=== PATIENT | female | born 1980 | race Caucasian/White ===

== ENCOUNTER 2016-11-17 11:07 | Emergency (ER) | payer OTHER ==
[2016-11-17] MEDS ORDERED: Sodium Chloride 0.9% 1000 ML 1,000 ML IV STA (11:55)
[2016-11-17] MEDS ORDERED: TORAdol 30 mg Injection IV ONE (11:57)
--- NOTE | 2016-11-17 12:01 | ERPHSYRPT ---
- History of Present Illness Time Seen by Provider: 11/17/16 11:51 Historian: patient Exam Limitations: no limitations Patient Subjective Stated Complaint: left flank and left abd pain and blood in urine since sunday. seen at [facility] today and sent over to ed for possible kidney. Triage Nursing Assessment: ambulated to room per self. skin w/d, color normal, resp easy. abd soft, tender to touch Physician History: This is a 36-year-old white female with history of kidney stones car arrives with complaint of pain in the suprapubic and left flank symptoms going on for one week she states she had blood in her urine one week ago she's been having continuing pain in the left flank she states she's been leaking urine. She has had some nausea no vomiting no diarrhea no melena no hematochezia. Past medical history kidney stones. Past surgical history includes cholecystectomy hysterectomy uterine ablation Timing/Duration: week(s) (one week) Activities at Onset: none Quality: sharpness Abdominal Pain Onset Location: suprapubic, flank (left flank) Pain Radiation: flank (left flank) Severity of Pain-Max: moderate Severity of Pain-Current: moderate Modifying Factors: Improves With: nothing Associated Symptoms: back (left flank pain), nausea, other (bloody urine), No chest pain, No diaphoresis, No diarrhea, No fever/chills, No fatigue, No headache, No heartburn, No loss of appetite, No neck pain, No rash, No shortness of breath, No syncope, No vomiting, No weakness Previous symptoms: same symptoms as today Allergies/Adverse Reactions: No Known Drug Allergies Allergy (Verified 11/17/16 11:25) Hx Tetanus, Diphtheria Vaccination/Date Given: No Hx Influenza Vaccination/Date Given: No Hx Pneumococcal Vaccination/Date Given: No - Review of Systems Constitutional: No Fever, No Chills Eyes: No Symptoms, No Discharge, No Eye Pain, No Eye Redness, No Itchy, No Photophobia, No Tearing, No Vision Changes, No Double Vision, No Foreign Body Sensation Ears, Nose, & Throat: No Symptoms, No Ear Pain, No Ear Discharge, No Hearing Changes, No Tinnitus, No Nose Pain, No Nose Congestion, No Nose Discharge, No Sinus Drainage, No Epistaxis, No Mouth Pain, No Mouth Swelling, No Loose Teeth, No Throat Pain, No Throat Swelling, No Hoarse, No Painful Swallowing, No Snoring , No Stridor Respiratory: No Cough, No Dyspnea Cardiac: No Chest Pain, No Edema, No Syncope Abdominal/Gastrointestinal: Abdominal Pain (suprapubic abdominal pain), No Nausea, No Vomiting, No Diarrhea, No Constipation, No Hematemesis, No Hematochezia, No Melena, No Dysphagia, No Appetite Changes Genitourinary Symptoms: Dysuria, Hematuria, Flank Pain (left flank pain), No Frequency, No Hesitancy, No Urgency, No Urinary Retention, No Menorrhagia, No , No Vaginal Bleeding, No Vaginal Discharge, No Vaginal Itching Musculoskeletal: No Back Pain, No Neck Pain Skin: No Rash Neurological: No Dizziness, No Focal Weakness, No Sensory Changes Psychological: No Symptoms Endocrine: No Symptoms All Other Systems: Reviewed and Negative - Past Medical History Pertinent Past Medical History: Yes Neurological History: No Pertinent History ENT History: No Pertinent History Cardiac History: No Pertinent History Respiratory History: No Pertinent History Endocrine Medical History: No Pertinent History Musculoskeletal History: No Pertinent History GI Medical History: No Pertinent History Psycho-Social History: No Pertinent History Female Reproductive Disorders: No Pertinent History, Menstrual Problems Other Medical History: KIDNEY STONES - Past Surgical History Past Surgical History: Yes Neuro Surgical History: No Pertinent History Cardiac: No Pertinent History Respiratory: No Pertinent History Gastrointestinal: Cholecystectomy Genitourinary: No Pertinent History Musculoskeletal: No Pertinent History Female Surgical History: No Pertinent History, Hysterectomy, Other Other Surgical History: UTERINE ABLASION - Social History Smoking Status: Never smoker Exposure to second hand smoke: No Drug Use: none Patient Lives Alone: No - Female History Hx Now: No - Nursing Vital Signs Nursing Vital Signs: Initial Vital Signs Temperature 99.4 F Temperature Source Oral Pulse Rate 92 Respiratory Rate 14 Blood Pressure [] 146/86 Pain Intensity 6 - Physical Exam General Appearance: mild distress Eye Exam: PERRL/EOMI, eyes nml inspection Ears, Nose, Throat Exam: normal ENT inspection, pharynx normal, moist mucous membranes Neck Exam: normal inspection, non-tender, supple, full range of motion Respiratory Exam: normal breath sounds, lungs clear, No respiratory distress Cardiovascular Exam: regular rate/rhythm, normal heart sounds Gastrointestinal/Abdomen Exam: soft, normal bowel sounds, tenderness ( suprapubic left-sided abdominal tenderness), No distention, No mass, No guarding , No ecchymosis, No pulsatile mass, No rebound, No hernia, No hepatomegaly, No organomegaly, No splenomegaly Back Exam: normal inspection, normal range of motion, No CVA tenderness, No vertebral tenderness Extremity Exam: normal inspection, normal range of motion, pelvis stable Neurologic Exam: alert, oriented x 3, cooperative, normal mood/affect, nml cerebellar function, sensation nml, No motor deficits Skin Exam: normal color, warm, dry SpO2 Interpretation: normal SpO2: 96 Oxygen Delivery: Room Air - Course Nursing assessment & vital signs reviewed: Yes - CT Exams Abdomen/Pelvis CT Interpretation: Discussed w/radiologist (CT abdomen and pelvis without contrast impression: 1. No renal calculus new minimal hydronephrosis in the left gu .system,query recent passage of calculus. 2. Again, nonobstructing right renal micro-calculus. 3. Remaining CT abdomen and pelvis without noncontrast exam is negative .) Ordered Tests: Active Orders 24 hr Category Date Time Status IV Insertion STAT Care 11/17/16 11:55 Active ABDOMEN AND PELVIS W/0 CONTRAS [CT] Stat Exams 11/17/16 11:55 Completed AMYLASE Stat Lab 11/17/16 11:30 Completed CBC W DIFF Stat Lab 11/17/16 11:30 Completed CMP Stat Lab 11/17/16 11:30 Completed CULTURE,URINE Stat Lab 11/17/16 12:44 Ordered LIPASE Stat Lab 11/17/16 11:30 Completed UA W/ MICROSCOPIC Stat Lab 11/17/16 11:55 Completed Medication Summary Generic Name Dose Route Start Last Admin Trade Name Freq PRN Reason Stop Dose Admin Sodium Chloride 1,000 mls @ 999 mls/hr 11/17/16 11:55 11/17/16 12:12 Sodium Chloride 0.9% 1000 Ml IV 11/17/16 12:55 999 mls/hr .[id number] STA Administration Discontinued Medications Generic Name Dose Route Start Last Admin Trade Name Freq PRN Reason Stop Dose Admin Sodium Chloride Confirm 11/17/16 12:04 Sodium Chloride 0.9% 1000 Ml Administered 11/17/16 12:05 Dose 1,000 mls @ ud .ROUTE .STK-MED ONE Ketorolac Tromethamine 30 mg 11/17/16 11:57 11/17/16 12:12 Toradol 30 Mg Injection IV 11/17/16 11:58 30 mg STAT ONE Administration Ketorolac Tromethamine Confirm 11/17/16 12:04 Toradol 30 Mg Injection Administered 11/17/16 12:05 Dose 30 mg .ROUTE .STK-MED ONE Lab/Rad Data: Laboratory Result Diagrams 11/17/16 11:30 11/17/16 11:30 Laboratory Results 11/17/16 11/17/16 11/17/16 Range/Units 11:55 11:30 11:30 WBC 11.7 H (4.0-10.5) K/mm3 RBC 4.51 (4.1-5.4) M/mm3 Hgb 13.5 (12.0-16.0) gm/dl Hct 40.4 (35-47) % MCV 89.6 (78-100) fl MCH 29.9 (26-32) pg MCHC 33.4 (32-36) g/dl RDW 12.5 (11.5-14.0) % Plt Count 437 (150-450) K/mm3 MPV 9.7 H (6-9.5) fl Gran % 69.9 H (36.0-66.0) % Lymphocytes % 20.2 L (24.0-44.0) % Monocytes % 9.3 (0.0-12.0) % Eosinophils % 0.2 (0.00-5.0) % Basophils % 0.4 (0.0-0.4) % Basophils # 0.05 (0-0.4) Sodium 139 (136-145) mEq/L Potassium 3.5 (3.5-5.1) mEq/L Chloride 102 (98-107) mEq/L Carbon Dioxide 24.8 (21-32) mEq/L Anion Gap 16.1 H (5-15) MEQ/L BUN 10 (9-20) mg/dL Creatinine 0.78 (0.55-1.30) mg/dl Estimated GFR > 60 ML/MIN Glucose 104 (70-110) MG/DL Calcium 9.5 (8.5-10.1) mg/dL Total Bilirubin 0.9 (0.2-1.0) mg/dL AST 32 (15-37) U/L ALT 40 (12-78) U/L Alkaline Phosphatase 127 H (46-116) U/L Serum Total Protein 8.2 (6.4-8.2) gm/dL Albumin 3.8 (3.4-5.0) g/dL Amylase 49 (25-115) U/L Lipase 87 (73-393) U/L Ur Collection Type VOID Urine Color YELLOW (YELLOW) Urine Appearance CLEAR (CLEAR) Urine pH 6.5 (5-6) Ur Specific [place] 1.010 (1.005-1.025) Urine Protein TRACE (Negative) Urine Glucose (UA) NEGATIVE (NEGATIVE) mg/dL Urine Ketones NEGATIVE (NEGATIVE) Urine Nitrite NEGATIVE (NEGATIVE) Urine Bilirubin NEGATIVE (NEGATIVE) Urine Urobilinogen 0.2 (0-1) mg/dL Urine WBC (Auto) MODERATE (NEGATIVE) Urine RBC (Auto) MODERATE (0-5) Gavino/ul Urine Microscopic RBC 0-2 (0-2) /HPF Urine Microscopic WBC 50-100 (0-5) /HPF Ur Epithelial Cells FEW (FEW) /HPF Urine Bacteria MODERATE (NEGATIVE) /HPF Specimen Received 11/17/16 1215 - Progress Progress: improved Progress Note: 11/17/16 12:52 36-year-old white female arrives with complaint of pain in her left the abdomen suprapubic area and left flank symptoms since one week Describes this as sharp. She states it feels like a kidney stone she states she did have some blood in her urine. Patient's labs show 50-100 white cells per high-power field CBC is essentially normal so his chemistry Patient's CT of the abdomen shows no renal calculus in the left system,. Minimal hydronephrosis with ureteral prominence, query recent passage of calculus there is a nonobstructing right renal micro-calculus. Remaining CT abdomen and pelvis without contrast was negative. Will go ahead and give patient Rocephin 1 g IV plan home Bactrim DS one orally twice a day for 10 days plenty of fluids. Patient states she has [place] at home. Patient will need to follow-up with her family doctor - Departure Time of Disposition: 12:54 Departure Disposition: Home Clinical Impression: Acute abdominal pain in left flank UTI (urinary tract infection) Qualifiers: Urinary tract infection type: site unspecified Hematuria presence: without hematuria Qualified Code(s): N39.0 - Urinary tract infection, site not specified Condition: Fair Critical Care Time: No Instructions: Abdominal Pain-Adult Additional Instructions: Return home. Plenty of fluids clear fluids only 24-48 hours if abdominal pain. [place] as prescribed by your family doctor. Bactrim DS one orally twice a day for 10 days. Follow-up with your family doctor. Return for acute distress or for severe symptoms. Strain all urine Prescriptions: Smz/Tmp Ds Tablet [Bactrim Ds Tablet] 1 tab PO BID #20 tablet
[2016-11-17] MEDS ORDERED: TORAdol 30 mg Injection ONE (12:04)
[2016-11-17] MEDS ORDERED: Sodium Chloride 0.9% 1000 ML 1,000 ML ONE (12:04)
[2016-11-17 12:09] LABS: BASOPHIL % 0.4 % (0.0-0.4); Eosinophil % 0.2 % (0.00-5.0); Granulocytes % 69.9 % (36.0-66.0); Lymphocytes % 20.2 % (24.0-44.0); Mean Cell Volume 89.6 fl (78-100); Mean Corpuscular Hemoglobin 29.9 pg (26-32); Mean Platelet Volume 9.7 fl (6-9.5); Monocytes % 9.3 % (0.0-12.0); Platelet Count 437 K/mm3 (150-450); Red Blood Count 4.51 M/mm3 (4.1-5.4); Red Cell Distribution Width 12.5 % (11.5-14.0); White Blood Count 11.7 K/mm3 (4.0-10.5)
--- NOTE | 2016-11-17 12:26 | XRAY ---
Indication: Left flank pain. Blood in urine. Multiple contiguous axial images obtained through the abdomen and pelvis without contrast as ordered. Comparison: January 09, 2016. Lung bases are clear. Heart is not enlarged. Again nonobstructing right lower renal micro-calculus. Left kidney negative for calculus. However there is now minimal left hydronephrosis and mild left ureteral prominence which can be seen from recent passage of calculus. No perinephric fluid or stranding. Noncontrasted stomach and bowel loops appear nonobstructed. Normal-appearing appendix. Again previous cholecystectomy and hysterectomy. No free fluid/air. Remaining liver, pancreas, spleen, adrenal glands, bladder, and aorta appear unremarkable for noncontrast exam. Osseous structures intact. Impression: 1. No renal calculus in the left system. New minimal hydronephrosis with ureteral prominence. Query recent passage of calculus. 2. Again nonobstructing right renal micro-calculus. 3. Remaining CT abdomen/pelvis without noncontrast exam is negative. CTDI 15.53
[2016-11-17 12:32] LABS: COMPLETE URINE MICROSCOPIC? YES; Collection Type VOID; Ph 6.5 (5-6)
[2016-11-17 12:33] LABS: Bacteria MODERATE /HPF (NEGATIVE); Epithelial Cells FEW /HPF (FEW); WBC 50-100 /HPF (0-5)
[2016-11-17 12:34] LABS: ALBUMIN 3.8 g/dL (3.4-5.0); ALKALINE PHOSPHATASE 127 U/L (46-116); ANION GAP 16.1 MEQ/L (5-15); BILIRUBIN,TOTAL 0.9 mg/dL (0.2-1.0); BLOOD UREA NITROGEN 10 mg/dL (9-20); CHLORIDE 102 mEq/L (98-107); Carbon Dioxide 24.8 mEq/L (21-32); Glucose 104 MG/DL (70-110); LIPASE 87 U/L (73-393); Potassium 3.5 mEq/L (3.5-5.1); SGOT/AST 32 U/L (15-37); SGPT/ALT 40 U/L (12-78); SODIUM 139 mEq/L (136-145); Total Protein 8.2 gm/dL (6.4-8.2)
[2016-11-17 12:48] VITALS: O2SAT 96
[2016-11-17] MEDS ORDERED: ROCEPHIN 1 Gm-D5w 50 ml Bag** 1 G/50 ML IVPB IV ONE ×2 (13:04→13:10)
[2016-11-17 13:56] VITALS: BP 134/92; PULSE 90
== END 2016-11-17 13:55 ==
LOC: ED 11:07
DX: N39.0 Urinary tract infection, site not specified (principal); R10.9 Unspecified abdominal pain; R31.9 Hematuria, unspecified; R11.0 Nausea
CPT/HCPCS: 36000; 36415; 74176; 80053; 81000; 82150; 83690; 85025; 87077; 87086; 87186; 96360; 96365; 96374; 99284; J0696; J1885

== ENCOUNTER 2019-01-29 17:25 | Emergency (ER) | payer BC | END 2019-01-29 21:55 | disposition home or self-care (01) | LOC: ED 17:25 ==

== ENCOUNTER 2020-03-09 18:06 | Emergency (ER) | payer BC ==
[2020-03-09] MEDS ORDERED: MORPHINE SULFATE 4 MG INJ IV ONE (18:44)
[2020-03-09 19:04] LABS: Absolute Neutrophil Ct (ANC) 12.06 (1.4-6.9); BASOPHIL % 0.3 % (0.0-0.4); Basophil (Absolute #) 0.05 (0-0.4); Eosinophil % 0.1 % (0.00-5.0); Eosinophil (Absolute #) 0.01 (0-0.5); Hematocrit 43.2 % (35-47); Hemoglobin 14.1 gm/dl (12.0-16.0); Lymphocyte (Absolute #) 1.66 (1.0-4.6); Lymphocytes % 11.3 % (24.0-44.0); Mean Cell Volume 91.5 fl (78-100); Mean Corpuscular Hemoglobin 29.9 pg (26-32); Mean Corpuscular Hgb Concent. 32.6 g/dl (32-36); Mean Platelet Volume 9.7 fl (7.5-11.0); Monocyte (Absolute #) 0.88 (0.0-1.3); Neutrophil % 82.3 % (36.0-66.0); Platelet Count 335 K/mm3 (150-450); Red Blood Count 4.72 M/mm3 (4.1-5.4); Red Cell Distribution Width 12.8 % (11.5-14.0); White Blood Count 14.7 K/mm3 (4.0-10.5)
[2020-03-09 19:12] LABS: ALBUMIN 4.6 g/dL (3.5-5.0); ALKALINE PHOSPHATASE 123 U/L (38-126); ANION GAP 15.2 MEQ/L (5-15); BLOOD UREA NITROGEN 14 mg/dL (7-17); CHLORIDE 102 mmol/L (98-107); Calcium 9.4 mg/dL (8.4-10.2); Carbon Dioxide 25 mmol/L (22-30); Creatinine 1 0.74 mg/dL (0.52-1.04); EST GLOMERULAR FILTRATION RATE > 60.0 ML/MIN; Glucose 144 mg/dL (74-106); SGOT/AST 27 U/L (14-36); SGPT/ALT 21 U/L (0-35); SODIUM 138 mmol/L (137-145); Total Protein 8.4 g/dL (6.3-8.2)
[2020-03-09 19:13] LABS: ETHYL ALCOHOL < 10 mg/dL (0-10)
[2020-03-09] MEDS ORDERED: MORPHINE SULFATE 4 MG INJ ONE (19:13)
[2020-03-09 19:26] LABS: Appearance CLEAR (CLEAR); Bilirubin NEGATIVE (NEGATIVE); Blood SMALL Ery/ul (0-5); Epithelial Cells RARE /HPF (FEW); Glucose NEGATIVE (NEGATIVE); Ketones SMALL (NEGATIVE); Leukocyte Esterase NEGATIVE (NEGATIVE); Mucus SLIGHT /HPF (NEGATIVE); Nitrite NEGATIVE (NEGATIVE); Protein,Urine Dip NEGATIVE (Negative); Specific Gravity 1.015 (1.005-1.025); Urobilinogen NEGATIVE mg/dL (0-1); WBC 0-2 /HPF (0-5)
[2020-03-09 19:32] LABS: Bacteria NONE SEEN /HPF (NEGATIVE)
[2020-03-09 19:40] LABS: Amphetamine,Urine NEGATIVE (NEGATIVE); Barbiturate,Urine NEGATIVE (NEGATIVE); Benzodiazepine,Urine NEGATIVE (NEGATIVE); Cocaine,Urine NEGATIVE (NEGATIVE); Methadone,Urine NEGATIVE (NEGATIVE); Opiate,Urine NEGATIVE (NEGATIVE); PCP,Urine NEGATIVE (NEGATIVE); THC,Urine NEGATIVE (NEGATIVE)
--- NOTE | 2020-03-09 20:48 | ERPHSYRPT ---
- History of Present Illness Time Seen by Provider: 03/09/20 18:20 Exam Limitations: no limitations Patient Subjective Stated Complaint: pt here for multi cos , pain to both arms , chesttoday with nausea, weakness, light headed,abd pain, migraine last night , she also states she has a migraine last ngt Triage Nursing Assessment: pt alert, walked in, resp easy. face mask applied,skin w/d/p, no edema Physician History: Patient is a 39-year-old female presents to our ED with complaints of chest pain heart palpitations bilateral arm pain nausea generalized weakness lightheadedness and a migraine headache. Symptoms started today. Symptoms have been constant. Patient describes a cloud over her eyes. No trauma. No fever. No diarrhea. No sick contacts. 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 Pain is mild to moderate in intensity. No specific worsening or improving factors. Patient states she is otherwise healthy. She voices no other complaints at this time. Timing/Duration: today Severity: moderate Modifying Factors: Improves With: nothing Associated Symptoms: nausea, headaches, No vomiting, No abdominal pain, No loss of appetite Allergies/Adverse Reactions: No Known Drug Allergies Allergy (Verified 03/09/20 18:23) Home Medications: Ospemifene [Osphena] 60 mg DAILY 01/29/19 [History] Testosterone Enanthate [Xyosted] 1 ea CLARIFY 03/09/20 [History] Hx Tetanus, Diphtheria Vaccination/Date Given: No Hx Influenza Vaccination/Date Given: No Hx Pneumococcal Vaccination/Date Given: No Immunizations Up to Date: Yes Travel Risk - International Travel Have you traveled outside of the country in past 3 weeks: No - Coronavirus Screening Are you exhibiting any of the following symptoms?: Yes Symptoms: Vomiting/Diarrhea Close contact with a COVID-19 positive Pt in past 14-21 Days: No - Review of Systems Constitutional: No Symptoms, No Fever, No Chills Eyes: No Symptoms Ears, Nose, & Throat: No Symptoms Respiratory: No Symptoms, No Cough, No Dyspnea Cardiac: No Symptoms, No Chest Pain, No Edema, No Syncope Abdominal/Gastrointestinal: No Symptoms, No Abdominal Pain, No Nausea, No Vomiting, No Diarrhea Genitourinary Symptoms: No Symptoms, No Dysuria Musculoskeletal: No Symptoms, No Back Pain, No Neck Pain Skin: No Symptoms, No Rash Neurological: No Symptoms, No Dizziness, No Focal Weakness, No Sensory Changes Psychological: No Symptoms Endocrine: No Symptoms Hematologic/Lymphatic: No Symptoms Immunological/Allergic: No Symptoms All Other Systems: Reviewed and Negative - Past Medical History Pertinent Past Medical History: Yes Neurological History: No Pertinent History ENT History: No Pertinent History Cardiac History: No Pertinent History Respiratory History: No Pertinent History Endocrine Medical History: No Pertinent History Musculoskeletal History: No Pertinent History GI Medical History: No Pertinent History Psycho-Social History: No Pertinent History Female Reproductive Disorders: No Pertinent History, Menstrual Problems Other Medical History: KIDNEY STONES - Past Surgical History Past Surgical History: Yes Neuro Surgical History: No Pertinent History Cardiac: No Pertinent History Respiratory: No Pertinent History Gastrointestinal: Cholecystectomy Genitourinary: No Pertinent History Musculoskeletal: No Pertinent History Female Surgical History: Hysterectomy, Other Other Surgical History: UTERINE ABLASION - Social History Smoking Status: Never smoker Exposure to second hand smoke: No Drug Use: none Patient Lives Alone: No - Female History Hx Last Menstrual Period: post Hx Now: No - Nursing Vital Signs Nursing Vital Signs: Initial Vital Signs Temperature 98.8 F 03/09/20 18:17 Pulse Rate 120 H 03/09/20 18:17 Respiratory Rate 18 03/09/20 18:17 Blood Pressure 181/100 03/09/20 18:17 O2 Sat by Pulse Oximetry 97 03/09/20 18:17 Pain Scale Pain Intensity 5 - Physical Exam General Appearance: no apparent distress, alert Eye Exam: PERRL/EOMI, eyes nml inspection Ears, Nose, Throat Exam: normal ENT inspection, TMs normal, pharynx normal, moist mucous membranes Neck Exam: normal inspection, non-tender, supple, full range of motion Respiratory Exam: normal breath sounds, lungs clear, No respiratory distress Cardiovascular Exam: regular rate/rhythm, normal heart sounds, normal peripheral pulses Gastrointestinal/Abdomen Exam: soft, normal bowel sounds, No tenderness, No mass Back Exam: normal inspection, normal range of motion, No CVA tenderness, No vertebral tenderness Extremity Exam: normal inspection, normal range of motion, pelvis stable Neurologic Exam: alert, oriented x 3, cooperative, normal mood/affect, nml cerebellar function, nml station & gait, sensation nml, No motor deficits Skin Exam: normal color, warm, dry, No rash Lymphatic Exam: No adenopathy SpO2: 97 O2 Delivery: Room Air - Course Nursing assessment & vital signs reviewed: Yes EKG Interpreted by Me: RATE ([id number]), Sinus Tach, NORMAL AXIS, NORMAL INTERVALS - Radiology Exams Chest X-ray Interpretation: Teleradiologist Report (Negative chest x-ray. Normal bony thorax. Normal cardiac silhouette. No pneumonia.) - CT Exams Head CT Interpretation: Tele-radiologist Report (Negative CT head.) Chest CT Interpretation: Tele-radiologist Report (Of ALFREDA. Incidental 5 mm left upper lobe noncalcified nodule. Fatty liver.) Ordered Tests: Active Orders 24 hr Category Date Time Status Bedrest with BRP/BSC ROUTINE Activity 03/10/20 00:50 Completed Up With Assistance ROUTINE Activity 03/10/20 00:50 Completed Budget Consultant STAT Care 03/09/20 18:46 Completed Code Status Order ROUTINE Care 03/10/20 00:50 Completed EKG-ER Only STAT Care 03/09/20 18:44 Completed IV Care Q6H Care 03/10/20 00:50 Completed IV Insertion STAT Care 03/09/20 18:44 Completed Implement Chest Pain Pathway ROUTINE Care 03/10/20 00:[address] in Observation ROUTINE Care 03/10/20 00:50 Completed Pulse Oximetry (ED) STAT Care 03/09/20 18:44 Completed Nate Hose, Apply ROUTINE Care 03/10/20 00:50 Completed Telemetry q6h Care 03/10/20 00:50 Completed Weight,Daily 0600 Care 03/10/20 00:50 Completed CHEST 1 VIEW (PORTABLE) Stat Exams 03/09/20 18:46 Taken CHEST WITH CONTRAST [CT] Stat Exams 03/09/20 21:38 Taken HEAD WITHOUT CONTRAST [CT] Stat Exams 03/09/20 21:23 Taken CBC W DIFF Stat Lab 03/09/20 18:45 Completed CMP Stat Lab 03/09/20 18:45 Completed D-DIMER QUANTITATIVE Stat Lab 03/09/20 18:45 Completed ETHYL ALCOHOL Stat Lab 03/09/20 18:45 Completed LIPID PROFILE AM.LAB Lab 03/10/20 04:00 Ordered MAGNESIUM Stat Lab 03/09/20 18:45 Completed TROPONIN AM.LAB Lab 03/10/20 04:00 Ordered TROPONIN Q3H Lab 03/09/20 18:45 Completed TROPONIN Q3H Lab 03/09/20 22:15 Completed TROPONIN Q3H Lab 03/10/20 00:40 Completed TROPONIN Q3H Lab 03/10/20 03:45 Ordered TROPONIN Q3H Lab 03/10/20 06:45 Ordered TSH, 3RD Generation Routine Lab 03/09/20 18:45 Completed VBG [VENOUS BLOOD GAS] Stat Lab 03/09/20 22:15 Completed EKG Q8HX2,QAMX3,PRN RT 03/10/20 00:50 Completed Pulse Oximetry Q4H RT 03/10/20 00:50 Completed Transfer Order Routine Transfer 03/10/20 Completed Medication Summary Discontinued Medications Generic Name Dose Route Start Last Admin Trade Name Freq PRN Reason Stop Dose Admin Acetaminophen 650 mg 03/10/20 00:50 Tylenol 325 Mg PO 04/09/20 00:49 Q4H PRN PRN PAIN AND/OR FEVER Al Hydrox/Mg Hydrox/Simethicone 30 ml 03/10/20 00:50 Maalox Es 30 Ml Unit Dose PO 04/09/20 00:49 Q4H PRN PRN INDIGESTION Sodium Chloride 1,000 mls @ 999 mls/hr 03/09/20 20:49 03/09/20 22:50 Sodium Chloride 0.9% 1000 Ml IV 03/09/20 21:49 Infused .Q1H1M STA Infusion Sodium Chloride Confirm 03/09/20 21:10 Sodium Chloride 0.9% 1000 Ml Administered 03/09/20 21:11 Dose 1,000 mls @ ud .ROUTE .STK-MED ONE Sodium Chloride 1,000 mls @ 999 mls/hr 03/10/20 00:14 03/10/20 00:41 Sodium Chloride 0.9% 1000 Ml IV 03/10/20 01:14 999 mls/hr .Q1H1M STA Administration Sodium Chloride Confirm 03/10/20 00:40 Sodium Chloride 0.9% 1000 Ml Administered 03/10/20 00:41 Dose 1,000 mls @ ud .ROUTE .STK-MED ONE Magnesium Hydroxide 30 - 60 ml 03/10/20 00:50 Milk Of Magnesia 30 Ml PO 04/09/20 00:49 QDP PRN CONSTIPATION Morphine Sulfate 4 mg 03/09/20 18:44 03/09/20 19:13 Morphine Sulfate 4 Mg Inj IV 03/09/20 18:45 4 mg STAT ONE Administration Morphine Sulfate Confirm 03/09/20 19:13 Morphine Sulfate 4 Mg Inj Administered 03/09/20 19:14 Dose 4 mg .ROUTE .STK-MED ONE Ondansetron HCl 4 mg 03/10/20 00:50 Zofran 4 Mg/2 Ml Vial IV 04/09/20 00:49 Q4H PRN PRN NAUSEA/VOMITING Senna/Docusate Sodium 2 udtab 03/10/20 00:50 Senokot-S Tablet PO 04/09/20 00:49 BID PRN PRN CONSTIPATION Lab/Rad Data: Laboratory Result Diagrams 03/09/20 18:45 03/09/20 18:45 Laboratory Results 03/09/20 03/09/20 03/09/20 Range/Units Unknown Unknown Unknown WBC (4.0-10.5) K/mm3 RBC (4.1-5.4) M/mm3 Hgb (12.0-16.0) gm/dl Hct (35-47) % MCV (78-100) fl MCH (26-32) pg MCHC (32-36) g/dl RDW (11.5-14.0) % Plt Count (150-450) K/mm3 MPV (7.5-11.0) fl Gran % (36.0-66.0) % Eos # (Auto) (0-0.5) Absolute Lymphs (auto) (1.0-4.6) Absolute Monos (auto) (0.0-1.3) Lymphocytes % (24.0-44.0) % Monocytes % (0.0-12.0) % Eosinophils % (0.00-5.0) % Basophils % (0.0-0.4) % Absolute Granulocytes (1.4-6.9) Basophils # (0-0.4) D-Dimer (215-500) ng/mL pO2/FiO2 Ratio % VBG pH (7.32-7.42) VBG pCO2 at Pat Temp (42-55) mm/Hg VBG pO2 at Pat Temp (25-40) mm/Hg VBG HCO3 (22-28) meq/L VBG O2 Sat (Jasiel) (95-100) VBG Base Excess (-2.0-2.0) VBG Hemoglobin VBG Carboxyhemoglobin (0.0-6.9) % T HGB POC Potassium (3.5-5.1) Sodium (137-145) mmol/L Potassium (3.5-5.1) mmol/L Chloride (98-107) mmol/L Carbon Dioxide (22-30) mmol/L Anion Gap (5-15) MEQ/L BUN (7-17) mg/dL Creatinine (0.52-1.04) mg/dL Estimated GFR ML/MIN Glucose (74-106) mg/dL Calcium (8.4-10.2) mg/dL Magnesium (1.6-2.3) mg/dL Total Bilirubin (0.2-1.3) mg/dL AST (14-36) U/L ALT (0-35) U/L Alkaline Phosphatase (38-126) U/L Troponin I (0.000-0.034) ng/mL Serum Total Protein (6.3-8.2) g/dL Albumin (3.5-5.0) g/dL TSH 3rd Generation (0.47-4.68) mIU/L Urine Color (YELLOW) Urine Appearance (CLEAR) Urine pH (5-6) Ur Specific [place] (1.005-1.025) Urine Protein (Negative) Urine Ketones (NEGATIVE) Urine Blood (0-5) Gavino/ul Urine Nitrite (NEGATIVE) Urine Bilirubin (NEGATIVE) Urine Urobilinogen (0-1) mg/dL Ur Leukocyte Esterase (NEGATIVE) Urine WBC (Auto) (0-5) /HPF Urine RBC (Auto) (0-2) /HPF U Epithel Cells (Auto) (FEW) /HPF Urine Bacteria (Auto) (NEGATIVE) /HPF Urine Mucus (Auto) (NEGATIVE) /HPF Urine Culture Reflexed (NO) Urine Glucose (NEGATIVE) mg/dL Urine HCG, Qual NEGATIVE (Negative) Salicylates 1.1 L (2-20) mg/dL Urine Opiates Level NEGATIVE (NEGATIVE) Ur Methadone NEGATIVE (NEGATIVE) Acetaminophen < 10 L (10-30) ug/ml Urine Barbiturates NEGATIVE (NEGATIVE) Ur Phencyclidine (PCP) NEGATIVE (NEGATIVE) Urine Amphetamine NEGATIVE (NEGATIVE) U Benzodiazepine Level NEGATIVE (NEGATIVE) Urine Cocaine NEGATIVE (NEGATIVE) Urine Marijuana (THC) NEGATIVE (NEGATIVE) Ethyl Alcohol (0-10) mg/dL SARS-CoV-2 (PCR) (NEGATIVE) 03/09/20 03/09/20 03/09/20 Range/Units Unknown 22:40 22:15 WBC (4.0-10.5) K/mm3 RBC (4.1-5.4) M/mm3 Hgb (12.0-16.0) gm/dl Hct (35-47) % MCV (78-100) fl MCH (26-32) pg MCHC (32-36) g/dl RDW (11.5-14.0) % Plt Count (150-450) K/mm3 MPV (7.5-11.0) fl Gran % (36.0-66.0) % Eos # (Auto) (0-0.5) Absolute Lymphs (auto) (1.0-4.6) Absolute Monos (auto) (0.0-1.3) Lymphocytes % (24.0-44.0) % Monocytes % (0.0-12.0) % Eosinophils % (0.00-5.0) % Basophils % (0.0-0.4) % Absolute Granulocytes (1.4-6.9) Basophils # (0-0.4) D-Dimer (215-500) ng/mL pO2/FiO2 Ratio 21.0 % VBG pH 7.47 H (7.32-7.42) VBG pCO2 at Pat Temp 34 L (42-55) mm/Hg VBG pO2 at Pat Temp 51 H (25-40) mm/Hg VBG HCO3 24.7 (22-28) meq/L VBG O2 Sat (Jasiel) 87.3 L (95-100) VBG Base Excess 1.5 (-2.0-2.0) VBG Hemoglobin 13.8 VBG Carboxyhemoglobin 2.8 (0.0-6.9) % T HGB POC Potassium 4.0 (3.5-5.1) Sodium (137-145) mmol/L Potassium (3.5-5.1) mmol/L Chloride (98-107) mmol/L Carbon Dioxide (22-30) mmol/L Anion Gap (5-15) MEQ/L BUN (7-17) mg/dL Creatinine (0.52-1.04) mg/dL Estimated GFR ML/MIN Glucose (74-106) mg/dL Calcium (8.4-10.2) mg/dL Magnesium (1.6-2.3) mg/dL Total Bilirubin (0.2-1.3) mg/dL AST (14-36) U/L ALT (0-35) U/L Alkaline Phosphatase (38-126) U/L Troponin I (0.000-0.034) ng/mL Serum Total Protein (6.3-8.2) g/dL Albumin (3.5-5.0) g/dL TSH 3rd Generation (0.47-4.68) mIU/L Urine Color YELLOW (YELLOW) Urine Appearance CLEAR (CLEAR) Urine pH 5.0 (5-6) Ur Specific [place] 1.015 (1.005-1.025) Urine Protein NEGATIVE (Negative) Urine Ketones SMALL (NEGATIVE) Urine Blood SMALL (0-5) Gavino/ul Urine Nitrite NEGATIVE (NEGATIVE) Urine Bilirubin NEGATIVE (NEGATIVE) Urine Urobilinogen NEGATIVE (0-1) mg/dL Ur Leukocyte Esterase NEGATIVE (NEGATIVE) Urine WBC (Auto) 0-2 (0-5) /HPF Urine RBC (Auto) NONE (0-2) /HPF U Epithel Cells (Auto) RARE (FEW) /HPF Urine Bacteria (Auto) NONE SEEN (NEGATIVE) /HPF Urine Mucus (Auto) SLIGHT (NEGATIVE) /HPF Urine Culture Reflexed NO (NO) Urine Glucose NEGATIVE (NEGATIVE) mg/dL Urine HCG, Qual (Negative) Salicylates (2-20) mg/dL Urine Opiates Level (NEGATIVE) Ur Methadone (NEGATIVE) Acetaminophen (10-30) ug/ml Urine Barbiturates (NEGATIVE) Ur Phencyclidine (PCP) (NEGATIVE) Urine Amphetamine (NEGATIVE) U Benzodiazepine Level (NEGATIVE) Urine Cocaine (NEGATIVE) Urine Marijuana (THC) (NEGATIVE) Ethyl Alcohol (0-10) mg/dL SARS-CoV-2 (PCR) NEGATIVE (NEGATIVE) 03/09/20 03/09/20 03/09/20 Range/Units 22:15 18:45 18:45 WBC (4.0-10.5) K/mm3 RBC (4.1-5.4) M/mm3 Hgb (12.0-16.0) gm/dl Hct (35-47) % MCV (78-100) fl MCH (26-32) pg MCHC (32-36) g/dl RDW (11.5-14.0) % Plt Count (150-450) K/mm3 MPV (7.5-11.0) fl Gran % (36.0-66.0) % Eos # (Auto) (0-0.5) Absolute Lymphs (auto) (1.0-4.6) Absolute Monos (auto) (0.0-1.3) Lymphocytes % (24.0-44.0) % Monocytes % (0.0-12.0) % Eosinophils % (0.00-5.0) % Basophils % (0.0-0.4) % Absolute Granulocytes (1.4-6.9) Basophils # (0-0.4) D-Dimer (215-500) ng/mL pO2/FiO2 Ratio % VBG pH (7.32-7.42) VBG pCO2 at Pat Temp (42-55) mm/Hg VBG pO2 at Pat Temp (25-40) mm/Hg VBG HCO3 (22-28) meq/L VBG O2 Sat (Jasiel) (95-100) VBG Base Excess (-2.0-2.0) VBG Hemoglobin VBG Carboxyhemoglobin (0.0-6.9) % T HGB POC Potassium (3.5-5.1) Sodium (137-145) mmol/L Potassium (3.5-5.1) mmol/L Chloride (98-107) mmol/L Carbon Dioxide (22-30) mmol/L Anion Gap (5-15) MEQ/L BUN (7-17) mg/dL Creatinine (0.52-1.04) mg/dL Estimated GFR ML/MIN Glucose (74-106) mg/dL Calcium (8.4-10.2) mg/dL Magnesium (1.6-2.3) mg/dL Total Bilirubin (0.2-1.3) mg/dL AST (14-36) U/L ALT (0-35) U/L Alkaline Phosphatase (38-126) U/L Troponin I < 0.012 < 0.012 (0.000-0.034) ng/mL Serum Total Protein (6.3-8.2) g/dL Albumin (3.5-5.0) g/dL TSH 3rd Generation 1.740 (0.47-4.68) mIU/L Urine Color (YELLOW) Urine Appearance (CLEAR) Urine pH (5-6) Ur Specific [place] (1.005-1.025) Urine Protein (Negative) Urine Ketones (NEGATIVE) Urine Blood (0-5) Gavino/ul Urine Nitrite (NEGATIVE) Urine Bilirubin (NEGATIVE) Urine Urobilinogen (0-1) mg/dL Ur Leukocyte Esterase (NEGATIVE) Urine WBC (Auto) (0-5) /HPF Urine RBC (Auto) (0-2) /HPF U Epithel Cells (Auto) (FEW) /HPF Urine Bacteria (Auto) (NEGATIVE) /HPF Urine Mucus (Auto) (NEGATIVE) /HPF Urine Culture Reflexed (NO) Urine Glucose (NEGATIVE) mg/dL Urine HCG, Qual (Negative) Salicylates (2-20) mg/dL Urine Opiates Level (NEGATIVE) Ur Methadone (NEGATIVE) Acetaminophen (10-30) ug/ml Urine Barbiturates (NEGATIVE) Ur Phencyclidine (PCP) (NEGATIVE) Urine Amphetamine (NEGATIVE) U Benzodiazepine Level (NEGATIVE) Urine Cocaine (NEGATIVE) Urine Marijuana (THC) (NEGATIVE) Ethyl Alcohol (0-10) mg/dL SARS-CoV-2 (PCR) (NEGATIVE) 03/09/20 03/09/20 03/09/20 Range/Units 18:45 18:45 18:45 WBC 14.7 H (4.0-10.5) K/mm3 RBC 4.72 (4.1-5.4) M/mm3 Hgb 14.1 (12.0-16.0) gm/dl Hct 43.2 (35-47) % MCV 91.5 (78-100) fl MCH 29.9 (26-32) pg MCHC 32.6 (32-36) g/dl RDW 12.8 (11.5-14.0) % Plt Count 335 (150-450) K/mm3 MPV 9.7 (7.5-11.0) fl Gran % 82.3 H (36.0-66.0) % Eos # (Auto) 0.01 (0-0.5) Absolute Lymphs (auto) 1.66 (1.0-4.6) Absolute Monos (auto) 0.88 (0.0-1.3) Lymphocytes % 11.3 L (24.0-44.0) % Monocytes % 6.0 (0.0-12.0) % Eosinophils % 0.1 (0.00-5.0) % Basophils % 0.3 (0.0-0.4) % Absolute Granulocytes 12.06 H (1.4-6.9) Basophils # 0.05 (0-0.4) D-Dimer 408 (215-500) ng/mL pO2/FiO2 Ratio % VBG pH (7.32-7.42) VBG pCO2 at Pat Temp (42-55) mm/Hg VBG pO2 at Pat Temp (25-40) mm/Hg VBG HCO3 (22-28) meq/L VBG O2 Sat (Jasiel) (95-100) VBG Base Excess (-2.0-2.0) VBG Hemoglobin VBG Carboxyhemoglobin (0.0-6.9) % T HGB POC Potassium (3.5-5.1) Sodium 138 (137-145) mmol/L Potassium 4.0 (3.5-5.1) mmol/L Chloride 102 (98-107) mmol/L Carbon Dioxide 25 (22-30) mmol/L Anion Gap 15.2 H (5-15) MEQ/L BUN 14 (7-17) mg/dL Creatinine 0.74 (0.52-1.04) mg/dL Estimated GFR > 60.0 ML/MIN Glucose 144 H (74-106) mg/dL Calcium 9.4 (8.4-10.2) mg/dL Magnesium 2.0 (1.6-2.3) mg/dL Total Bilirubin 0.80 (0.2-1.3) mg/dL AST 27 (14-36) U/L ALT 21 (0-35) U/L Alkaline Phosphatase 123 (38-126) U/L Troponin I (0.000-0.034) ng/mL Serum Total Protein 8.4 H (6.3-8.2) g/dL Albumin 4.6 (3.5-5.0) g/dL TSH 3rd Generation (0.47-4.68) mIU/L Urine Color (YELLOW) Urine Appearance (CLEAR) Urine pH (5-6) Ur Specific [place] (1.005-1.025) Urine Protein (Negative) Urine Ketones (NEGATIVE) Urine Blood (0-5) Gavino/ul Urine Nitrite (NEGATIVE) Urine Bilirubin (NEGATIVE) Urine Urobilinogen (0-1) mg/dL Ur Leukocyte Esterase (NEGATIVE) Urine WBC (Auto) (0-5) /HPF Urine RBC (Auto) (0-2) /HPF U Epithel Cells (Auto) (FEW) /HPF Urine Bacteria (Auto) (NEGATIVE) /HPF Urine Mucus (Auto) (NEGATIVE) /HPF Urine Culture Reflexed (NO) Urine Glucose (NEGATIVE) mg/dL Urine HCG, Qual (Negative) Salicylates (2-20) mg/dL Urine Opiates Level (NEGATIVE) Ur Methadone (NEGATIVE) Acetaminophen (10-30) ug/ml Urine Barbiturates (NEGATIVE) Ur Phencyclidine (PCP) (NEGATIVE) Urine Amphetamine (NEGATIVE) U Benzodiazepine Level (NEGATIVE) Urine Cocaine (NEGATIVE) Urine Marijuana (THC) (NEGATIVE) Ethyl Alcohol < 10 (0-10) mg/dL SARS-CoV-2 (PCR) (NEGATIVE) - Progress Progress: improved Progress Note: His heart rate gradually improved while in our ED. Heart rate down to 97 from 140. Patient was admitted as a observation patient however this was discontinued as patient's vitals normalized. Patient requesting discharge. Work-up otherwise negative. Will discharge patient home. Patient to follow-up with her primary care doctor within 48 hours for reevaluation. 03/10/20 01:48 Counseled pt/family regarding: lab results, diagnosis, need for follow-up, rad results - Departure Departure Disposition: Home Clinical Impression: Sinus tachycardia, Lung nodule, Fatty liver, Leukocytosis, Microscopic hematuria Condition: Stable Critical Care Time: No
[2020-03-09] MEDS ORDERED: Sodium Chloride 0.9% 1000 ML 1,000 ML IV STA (20:49)
[2020-03-09 21:01] LABS: SALICYLATE 1.1 mg/dL (2-20)
[2020-03-09 21:02] LABS: ACETAMINOPHEN < 10 ug/ml (10-30)
[2020-03-09] MEDS ORDERED: Sodium Chloride 0.9% 1000 ML 1,000 ML ONE (21:10)
[2020-03-09 22:21] LABS: VBG BASE EXCESS 1.5 (-2.0-2.0); VBG CARBOXYHEMOGLOBIN 2.8 % T HGB (0.0-6.9); VBG HCO3- 24.7 meq/L (22-28); VBG HEMOGLOBIN 13.8; VBG O2 SATURATION 87.3 (95-100); VBG pH 7.47 (7.32-7.42)
[2020-03-10] MEDS ORDERED: Sodium Chloride 0.9% 1000 ML 1,000 ML IV STA (00:14)
[2020-03-10] MEDS ORDERED: Sodium Chloride 0.9% 1000 ML 1,000 ML ONE (00:40)
[2020-03-10] MEDS ORDERED: MAALOX ES 30 ML UNIT DOSE PO PRN ×2 (00:50→09:07)
[2020-03-10] MEDS ORDERED: Senokot-S Tablet PO PRN ×2 (00:50→09:07)
[2020-03-10] MEDS ORDERED: Zofran 4 MG/2 ML VIAL IV PRN ×2 (00:50→09:07)
[2020-03-10] MEDS ORDERED: MILK OF MAGNESIA 30 ML PO PRN ×2 (00:50→09:07)
[2020-03-10] MEDS ORDERED: TYLENOL 325 MG PO PRN ×2 (00:50→09:07)
[2020-03-10 01:53] VITALS: BP 144/91; PULSE 97; O2SAT 98
--- NOTE | 2020-03-10 08:37 | XRAY ---
Indication: Headache and dizziness. Multiple contiguous axial images obtained through the head without contrast. Comparison: None Normal appearing brain parenchyma, ventricles, and bony calvarium. Visualized paranasal sinuses and mastoid air cells are clear. Impression: Normal CT head without contrast exam.
--- NOTE | 2020-03-10 08:41 | XRAY ---
Indication: Dizziness, short of breath, chest tightness, tachycardia, and high blood pressure. Multiple contiguous axial images obtained through the chest using 80 cc Isovue 370 contrast and PE protocol. Comparison: None There is adequate opacification of the pulmonary arteries to include the lobar and segmental branches. Minimal respiration artifact slightly degrades the study. No pulmonary embolus. Heart is not enlarged. Aorta is normal in course and caliber. No pathologic mediastinal/hilar lymphadenopathy. Lungs are inflated with indeterminant 5-6 mm left upper lobe noncalcified nodularity and minimal lingula fibrosis/scarring. No infiltrate or effusion. Bony thorax intact. Limited upper abdomen demonstrates fatty liver and cholecystectomy. Impression: 1. Negative pulmonary embolus. No acute cardiopulmonary abnormalities. 2. Indeterminant left upper lobe noncalcified micronodule. Recommend outside comparison studies if available. If not, follow-up per Fleischner guidelines recommended. 3. Incidental fatty liver.
--- NOTE | 2020-03-10 08:43 | XRAY ---
Indication: Chest tightness and left arm numbness. Comparison: July 22, 2007. Portable chest again demonstrates normal heart, lungs, and bony thorax.
== END 2020-03-10 01:56 | disposition home or self-care (01) ==
LOC: ED 18:06 → UNDOADMOB 03-10 00:38 → MED SURG 03-10 00:38 → UNDODISOB 03-10 01:22
DX: R00.0 Tachycardia, unspecified (principal); R91.1 Solitary pulmonary nodule; K76.0 Fatty (change of) liver, not elsewhere classified; D72.829 Elevated white blood cell count, unspecified; R31.29 Other microscopic hematuria
CPT/HCPCS: 36000; 36415; 70450; 71045; 71260; 80053; 80307; 81001; 82805; 83735; 84443; 84484; 84703; 85025; 85379; 93005; 93041; 94760; 96360; 96361; 96374; 99284; U0003; J2270; G0480

== ENCOUNTER 2021-10-25 09:10 | Emergency (ER) | payer BC ==
[2021-10-25] MEDS ORDERED: BABY ASPIRIN 81 MG CHEW PO ONE (09:36)
--- NOTE | 2021-10-25 09:36 | ERPHSYRPT ---
- History of Present Illness Time Seen by Provider: 10/25/21 09:30 Historian: patient Exam Limitations: no limitations Patient Subjective Stated Complaint: Chest pain Triage Nursing Assessment: Patient ambulated back to ED and transferred self to bed. Patient A+O x 3. Patient's skin pink, warm and dry. Patient complains of chest tightness and heaviness that goes to her back7/10 that started around 0830. Patient states her right leg is also "heavy". Patient was on way to dr to be checked for UTI when this pain started. Physician History: This is a 41-year-old white female who has no documented cardiac history but p resents with chest pain described as a band wrapping around the lower portion of her chest and giving her the sensation of chest pain and tightness. Patient has had a cholecystectomy in the past. She has been evaluated by child development teacher in the last year and there is been no documented coronary artery disease. Patient was also having some urinary tract infection symptoms that she wants evaluated. Patient denies shortness of breath. She says her legs have been feeling "heavy" for the last several days but no specific pain. She has had no injury to her legs. She denies abdominal pain. She denies flulike symptoms. Timing/Duration: today Activities at Onset: none Quality: tightness Location: other (Bilateral lower chest around her anterior chest and back into bandlike fashion) Severity of Pain-Max: moderate Severity of Pain-Current: mild (To moderate) Modifying Factors: Improves With: nothing Associated Symptoms: denies symptoms Nitro Today/Relief: no nitro taken today Aspirin Treatment Today: 81 mg x 4, provided by ED Allergies/Adverse Reactions: No Known Drug Allergies Allergy (Verified 03/09/20 18:23) Home Medications: Ospemifene [Osphena] 60 mg DAILY 01/29/19 [History] Testosterone Enanthate [Xyosted] 1 ea CLARIFY 03/09/20 [History] Hx Tetanus, Diphtheria Vaccination/Date Given: No Hx Influenza Vaccination/Date Given: Yes Hx Pneumococcal Vaccination/Date Given: No Immunizations Up to Date: Yes Travel Risk - International Travel Have you traveled outside of the country in past 3 weeks: No - Coronavirus Screening Are you exhibiting any of the following symptoms?: No Close contact with a COVID-19 positive Pt in past 14-21 Days: No - Vaccine Status Have you recieved a Covid-19 vaccination: Yes 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[employer] - Vaccination Dates Date of 2cond Vaccination (if applicable): 09/25/2021 - Review of Systems Constitutional: No Symptoms Eyes: No Symptoms Ears, Nose, & Throat: No Symptoms Respiratory: No Symptoms Cardiac: Chest Pain Abdominal/Gastrointestinal: No Symptoms Genitourinary Symptoms: Dysuria, Flank Pain (Bilateral) Musculoskeletal: No Symptoms Skin: No Symptoms Neurological: No Symptoms Psychological: No Symptoms Endocrine: No Symptoms Hematologic/Lymphatic: No Symptoms Immunological/Allergic: No Symptoms All Other Systems: Reviewed and Negative - Past Medical History Pertinent Past Medical History: Yes Neurological History: No Pertinent History ENT History: No Pertinent History Cardiac History: No Pertinent History Respiratory History: No Pertinent History Endocrine Medical History: No Pertinent History Musculoskeletal History: No Pertinent History GI Medical History: No Pertinent History Psycho-Social History: No Pertinent History Female Reproductive Disorders: No Pertinent History, Menstrual Problems Other Medical History: KIDNEY STONES - Past Surgical History Past Surgical History: Yes Neuro Surgical History: No Pertinent History Cardiac: No Pertinent History Respiratory: No Pertinent History Gastrointestinal: Cholecystectomy Genitourinary: No Pertinent History Musculoskeletal: No Pertinent History Female Surgical History: Hysterectomy, Other Other Surgical History: UTERINE ABLASION - Social History Smoking Status: Never smoker Exposure to second hand smoke: No Drug Use: none Patient Lives Alone: No - Female History Hx Last Menstrual Period: hysterectomy Hx Now: No - Nursing Vital Signs Nursing Vital Signs: Initial Vital Signs Temperature 97.6 F 10/25/21 09:24 Pulse Rate 85 10/25/21 09:24 Respiratory Rate 18 10/25/21 09:24 Blood Pressure 139/102 10/25/21 09:24 O2 Sat by Pulse Oximetry 99 10/25/21 09:24 Pain Scale Pain Intensity 7 - Physical Exam General Appearance: no apparent distress, alert, anxiety Eye Exam: PERRL/EOMI, eyes nml inspection Ears, Nose, Throat Exam: normal ENT inspection, moist mucous membranes Neck Exam: normal inspection, non-tender, supple, full range of motion Respiratory Exam: normal breath sounds, chest tenderness (Tightness), lungs clear, airway intact, No respiratory distress Cardiovascular Exam: regular rate/rhythm, normal heart sounds, normal peripheral pulses Gastrointestinal/Abdomen Exam: soft, normal bowel sounds, No tenderness Pelvic Exam: not done Rectal Exam: not done Back Exam: normal inspection, normal range of motion, CVA tenderness (Mild bilateral), No vertebral tenderness Extremity Exam: normal inspection, normal range of motion, pelvis stable Neurologic Exam: alert, oriented x 3, cooperative, medical reception specialist II-XII nml as tested, normal mood/affect, nml cerebellar function, nml station & gait, sensation nml Skin Exam: normal color, warm, dry Lymphatic Exam: No adenopathy SpO2 Interpretation: normal SpO2: 99 O2 Delivery: Room Air - Course Nursing assessment & vital signs reviewed: Yes EKG Interpreted by Me: RATE (77), Sinus Rhythm, NORMAL AXIS, NORMAL INTERVALS, NORMAL QRS, NORMAL ST-T, Other (No acute ischemic changes. Today's EKG shows resolution of a sinus tachycardia that was present on EKG dated 03/09/2020) Ordered Tests: Active Orders 24 hr Category Date Time Status EKG-ER Only STAT Care 10/25/21 09:36 Active IV Insertion STAT Care 10/25/21 09:36 Active Pulse Oximetry (ED) STAT Care 10/25/21 09:36 Active CHEST 1 VIEW (PORTABLE) Stat Exams 10/25/21 09:36 Completed CBC W DIFF Stat Lab 10/25/21 09:30 Completed CMP Stat Lab 10/25/21 09:30 Completed CULTURE,URINE Routine Lab 10/25/21 10:00 Received D-DIMER QUANTITATIVE Stat Lab 10/25/21 09:30 Completed PROTIME WITH INR Stat Lab 10/25/21 09:30 Completed TROPONIN Q3H Lab 10/25/21 09:30 Completed TROPONIN Q3H Lab 10/25/21 12:45 Ordered TROPONIN Q3H Lab 10/25/21 15:45 Ordered TROPONIN Q3H Lab 10/25/21 18:45 Ordered TROPONIN Q3H Lab 10/25/21 21:45 Ordered Medication Summary Discontinued Medications Generic Name Dose Route Start Last Admin Trade Name Freq PRN Reason Stop Dose Admin Aspirin 324 mg 10/25/21 09:36 10/25/21 09:51 Aspirin 81 Mg Tab.Chew PO 10/25/21 09:37 324 mg STAT ONE Administration Aspirin Confirm 10/25/21 09:52 Aspirin 81 Mg Tab.Chew Administered 10/25/21 09:53 Dose 324 mg .ROUTE .STK-MED ONE Morphine Sulfate 2 mg 10/25/21 10:03 10/25/21 10:46 Morphine Sulfate 2 Mg/Ml Inj IV 10/25/21 10:04 2 mg STAT ONE Administration Morphine Sulfate Confirm 10/25/21 10:45 Morphine Sulfate 2 Mg/Ml Inj Administered 10/25/21 10:46 Dose 2 mg .ROUTE .STK-MED ONE Ondansetron HCl 4 mg 10/25/21 10:03 10/25/21 10:46 Ondansetron Hcl 4 Mg/2 Ml Vial IV 10/25/21 10:04 4 mg STAT ONE Administration Ondansetron HCl Confirm 10/25/21 10:45 Ondansetron Hcl 4 Mg/2 Ml Vial Administered 10/25/21 10:46 Dose 4 mg .ROUTE .STK-MED ONE Lab/Rad Data: Laboratory Result Diagrams 10/25/21 09:30 10/25/21 09:30 Laboratory Results 10/25/21 10/25/21 10/25/21 Range/Units 10:00 09:30 09:30 WBC (4.0-10.5) K/mm3 RBC (4.1-5.4) M/mm3 Hgb (12.0-16.0) gm/dl Hct (35-47) % MCV (78-100) fl MCH (26-32) pg MCHC (32-36) g/dl RDW (11.5-14.0) % Plt Count (150-450) K/mm3 MPV (7.5-11.0) fl Gran % (36.0-66.0) % Eos # (Auto) (0-0.5) Absolute Lymphs (auto) (1.0-4.6) Absolute Monos (auto) (0.0-1.3) Lymphocytes % (24.0-44.0) % Monocytes % (0.0-12.0) % Eosinophils % (0.00-5.0) % Basophils % (0.0-0.4) % Absolute Granulocytes (1.4-6.9) Basophils # (0-0.4) PT 11.4 (9.4-12.5) SECONDS INR 0.97 (0.8-3.0) D-Dimer 483 (215-500) ng/mL Sodium (137-145) mmol/L Potassium (3.5-5.1) mmol/L Chloride (98-107) mmol/L Carbon Dioxide (22-30) mmol/L Anion Gap (5-15) MEQ/L BUN (7-17) mg/dL Creatinine (0.52-1.04) mg/dL Estimated GFR ML/MIN Glucose (74-106) mg/dL Calcium (8.4-10.2) mg/dL Total Bilirubin (0.2-1.3) mg/dL AST (14-36) U/L ALT (0-35) U/L Alkaline Phosphatase (38-126) U/L Troponin I < 0.012 (0.000-0.034) ng/mL Serum Total Protein (6.3-8.2) g/dL Albumin (3.5-5.0) g/dL Urinalys Dipstick Clnc MAIN LAB Urine Color YELLOW (YELLOW) Urine Appearance SLIGHTLY CLOUDY (CLEAR) Urine pH 6.0 (5-6) Ur Specific [place] >=1.030 (1.005-1.025) POC Urine Protein Conf TRACE (Negative) Urine Ketones NEGATIVE (NEGATIVE) Urine Nitrite NEGATIVE (NEGATIVE) Urine Bilirubin NEGATIVE (NEGATIVE) Urine Urobilinogen 0.2 (0-1) mg/dL Urine Leukocytes TRACE (NEGATIVE) Urine WBC (Auto) >100 (0-5) /HPF Urine RBC (Auto) 26-50 (0-2) /HPF U Epithel Cells (Auto) FEW (FEW) /HPF Urine Bacteria (Auto) MODERATE (NEGATIVE) /HPF Urine RBC MODERATE (0-5) Gavino/ul Urine Mucus (Auto) SLIGHT (NEGATIVE) /HPF Ur Culture Indicated? YES Urine Glucose NEGATIVE (NEGATIVE) mg/dL 10/25/21 10/25/21 Range/Units 09:30 09:30 WBC 8.6 (4.0-10.5) K/mm3 RBC 4.32 (4.1-5.4) M/mm3 Hgb 13.2 (12.0-16.0) gm/dl Hct 40.9 (35-47) % MCV 94.7 (78-100) fl MCH 30.6 (26-32) pg MCHC 32.3 (32-36) g/dl RDW 12.5 (11.5-14.0) % Plt Count 384 (150-450) K/mm3 MPV 9.8 (7.5-11.0) fl Gran % 63.5 (36.0-66.0) % Eos # (Auto) 0.05 (0-0.5) Absolute Lymphs (auto) 2.24 (1.0-4.6) Absolute Monos (auto) 0.81 (0.0-1.3) Lymphocytes % 26.0 (24.0-44.0) % Monocytes % 9.4 (0.0-12.0) % Eosinophils % 0.6 (0.00-5.0) % Basophils % 0.5 (0.0-0.4) % Absolute Granulocytes 5.47 (1.4-6.9) Basophils # 0.04 (0-0.4) PT (9.4-12.5) SECONDS INR (0.8-3.0) D-Dimer (215-500) ng/mL Sodium 140 (137-145) mmol/L Potassium 4.4 (3.5-5.1) mmol/L Chloride 103 (98-107) mmol/L Carbon Dioxide 27 (22-30) mmol/L Anion Gap 14.1 (5-15) MEQ/L BUN 13 (7-17) mg/dL Creatinine 0.79 (0.52-1.04) mg/dL Estimated GFR > 60.0 ML/MIN Glucose 101 (74-106) mg/dL Calcium 9.4 (8.4-10.2) mg/dL Total Bilirubin 1.30 (0.2-1.3) mg/dL AST 43 H (14-36) U/L ALT 33 (0-35) U/L Alkaline Phosphatase 88 (38-126) U/L Troponin I (0.000-0.034) ng/mL Serum Total Protein 7.5 (6.3-8.2) g/dL Albumin 4.2 (3.5-5.0) g/dL Urinalys Dipstick Clnc Urine Color (YELLOW) Urine Appearance (CLEAR) Urine pH (5-6) Ur Specific [place] (1.005-1.025) POC Urine Protein Conf (Negative) Urine Ketones (NEGATIVE) Urine Nitrite (NEGATIVE) Urine Bilirubin (NEGATIVE) Urine Urobilinogen (0-1) mg/dL Urine Leukocytes (NEGATIVE) Urine WBC (Auto) (0-5) /HPF Urine RBC (Auto) (0-2) /HPF U Epithel Cells (Auto) (FEW) /HPF Urine Bacteria (Auto) (NEGATIVE) /HPF Urine RBC (0-5) Gavino/ul Urine Mucus (Auto) (NEGATIVE) /HPF Ur Culture Indicated? Urine Glucose (NEGATIVE) mg/dL - Progress Progress: improved, re-examined Air Movement: good Progress Note: 10/25/21 10:59 Chest x-ray shows no acute cardiopulmonary process Blood Culture(s) Obtained: No Counseled pt/family regarding: lab results, diagnosis, need for follow-up, rad results - Departure Departure Disposition: Home Clinical Impression: Non-cardiac chest pain, UTI (urinary tract infection) Condition: Stable Critical Care Time: No Referrals: JAYESH LEWIS MD [Primary Care Provider] - Follow up/PCP as directed Additional Instructions: Drink plenty of fluids. Follow-up with your primary care physician and child development teacher for further evaluation and management. Take your medications as prescribed Prescriptions: Ciprofloxacin [Cipro 500 MG] 500 mg PO BID #14 tablet
[2021-10-25] MEDS ORDERED: BABY ASPIRIN 81 MG CHEW ONE (09:52)
--- NOTE | 2021-10-25 10:00 | XRAY ---
Indication: Chest pain. Comparison: March 09, 2020. Portable chest again demonstrates normal heart, lungs, and bony thorax.
[2021-10-25 10:01] LABS: Absolute Neutrophil Ct (ANC) 5.47 (1.4-6.9); Basophil (Absolute #) 0.04 (0-0.4); Eosinophil % 0.6 % (0.00-5.0); Eosinophil (Absolute #) 0.05 (0-0.5); Hematocrit 40.9 % (35-47); Hemoglobin 13.2 gm/dl (12.0-16.0); Lymphocyte (Absolute #) 2.24 (1.0-4.6); Mean Cell Volume 94.7 fl (78-100); Mean Corpuscular Hemoglobin 30.6 pg (26-32); Mean Corpuscular Hgb Concent. 32.3 g/dl (32-36); Mean Platelet Volume 9.8 fl (7.5-11.0); Monocyte (Absolute #) 0.81 (0.0-1.3); Monocytes % 9.4 % (0.0-12.0); Neutrophil % 63.5 % (36.0-66.0); Platelet Count 384 K/mm3 (150-450); Red Blood Count 4.32 M/mm3 (4.1-5.4); Red Cell Distribution Width 12.5 % (11.5-14.0); White Blood Count 8.6 K/mm3 (4.0-10.5)
[2021-10-25] MEDS ORDERED: MORPHINE SULFATE 2 MG INJ IV ONE (10:03)
[2021-10-25] MEDS ORDERED: Zofran 4 MG/2 ML VIAL IV ONE (10:03)
[2021-10-25 10:05] LABS: Appearance SLIGHTLY CLOUDY (CLEAR); Bilirubin NEGATIVE (NEGATIVE); Dipstick done @ ? MAIN LAB; Glucose NEGATIVE (NEGATIVE); Ketones NEGATIVE (NEGATIVE); Nitrite NEGATIVE (NEGATIVE); Protein,Urine Dip TRACE (Negative); RBC MODERATE Ery/ul (0-5); Specific Gravity >=1.030 (1.005-1.025); Urobilinogen 0.2 mg/dL (0-1)
[2021-10-25 10:11] LABS: ALBUMIN 4.2 g/dL (3.5-5.0); ALKALINE PHOSPHATASE 88 U/L (38-126); ANION GAP 14.1 MEQ/L (5-15); BLOOD UREA NITROGEN 13 mg/dL (7-17); CHLORIDE 103 mmol/L (98-107); Calcium 9.4 mg/dL (8.4-10.2); Carbon Dioxide 27 mmol/L (22-30); Creatinine 1 0.79 mg/dL (0.52-1.04); EST GLOMERULAR FILTRATION RATE > 60.0 ML/MIN; Glucose 101 mg/dL (74-106); Potassium 4.4 mmol/L (3.5-5.1); SGOT/AST 43 U/L (14-36); SGPT/ALT 33 U/L (0-35); SODIUM 140 mmol/L (137-145); Total Protein 7.5 g/dL (6.3-8.2)
[2021-10-25 10:13] LABS: Bacteria MODERATE /HPF (NEGATIVE); Epithelial Cells FEW /HPF (FEW); Mucus SLIGHT /HPF (NEGATIVE); RBC 26-50 /HPF (0-2); WBC >100 /HPF (0-5)
[2021-10-25 10:14] LABS: Urine Cultured Indicated? YES
[2021-10-25 10:14] LABS: INR 0.97 (0.8-3.0); PROTIME 11.4 SECONDS (9.4-12.5)
[2021-10-25 10:33] VITALS: PULSE 75
[2021-10-25] MEDS ORDERED: Zofran 4 MG/2 ML VIAL ONE (10:45)
[2021-10-25] MEDS ORDERED: MORPHINE SULFATE 2 MG INJ ONE (10:45)
[2021-10-25] MEDS ORDERED: ROCEPHIN 1 Gm-D5w 50 ml Bag** 1 G/50 ML IVPB IV STA (11:00)
[2021-10-25] MEDS ORDERED: ROCEPHIN 1 Gm-D5w 50 ml Bag** 1 G/50 ML IVPB IV ONE (11:03)
[2021-10-25 11:17] VITALS: BP 125/85; O2SAT 98
== END 2021-10-25 11:22 | disposition home or self-care (01) ==
LOC: ED 09:10
DX: R07.89 Other chest pain (principal); N39.0 Urinary tract infection, site not specified; Z79.899 Other long term (current) drug therapy
CPT/HCPCS: 36000; 36415; 71045; 80053; 81015; 84484; 85025; 85379; 85610; 87086; 93005; 94760; 96374; 96375; 99284; J0696; J2270; J2405; A9270-GY

== ENCOUNTER 2023-01-01 19:54 | Emergency (ER) | payer BC ==
--- NOTE | 2023-01-01 20:14 | ERPHSYRPT ---
- History of Present Illness Time Seen by Provider: 01/01/23 20:14 Historian: patient Exam Limitations: no limitations Physician History: This is a 42-year-old white female patient who has a history of kidney stones and ureteral stones in the past and presents with right flank and right lower quadrant abdominal pain and associated hematuria and passage of a small amount of "tissue" with urination. She does see Dr. Locke/Peg nurse practitioner in Dr. Locke's office. Patient has had a hysterectomy and cholecystectomy in the past. At approximately 1400 she started having the flank pain on the right and the right lower quadrant all pain with passage of bloody urine at 1430. Timing/Duration: today Quality: aching Abdominal Pain Onset Location: RLQ, flank (Right flank) Pain Radiation: flank (To right lower quadrant) Severity of Pain-Max: mild (To moderate) Severity of Pain-Current: mild (To moderate) Modifying Factors: Improves With: nothing Associated Symptoms: denies symptoms Previous symptoms: same symptoms as today, no recent treatment Allergies/Adverse Reactions: No Known Drug Allergies Allergy (Verified 01/01/23 20:09) Home Medications: Ospemifene [Osphena] 60 mg PO DAILY 01/29/19 [History] Citalopram Hydrobromide 20 mg* [ceLEXa 20 MG] 20 mg PO DAILY 01/01/23 [H istory] Estradiol [Sandrine] 0.05 mg TOP 01/01/23 [History] Famotidine 40 mg PO HS 01/01/23 [History] Metoprolol Succinate 50 mg [Toprol Xl 50 MG] 50 mg PO BID 01/01/23 [History] Omeprazole 40 mg PO DAILY 01/01/23 [History] Rosuvastatin Calcium 10 mg PO DAILY 01/01/23 [History] Hx Tetanus, Diphtheria Vaccination/Date Given: No Hx Influenza Vaccination/Date Given: Yes Hx Pneumococcal Vaccination/Date Given: No Travel Risk - International Travel Have you traveled outside of the country in past 3 weeks: No - Coronavirus Screening Are you exhibiting any of the following symptoms?: No Close contact with a COVID-19 positive Pt in past 14-21 Days: No - Vaccine Status Have you recieved a Covid-19 vaccination: Yes 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[employer] - Vaccination Dates Date of 2cond Vaccination (if applicable): 09/25/2021 - Review of Systems Constitutional: No Symptoms Eyes: No Symptoms Ears, Nose, & Throat: No Symptoms Respiratory: No Symptoms Cardiac: No Symptoms Abdominal/Gastrointestinal: Abdominal Pain (Right lower quadrant) Genitourinary Symptoms: Dysuria, Hematuria, Flank Pain (Right) Musculoskeletal: No Symptoms Skin: No Symptoms Neurological: No Symptoms Psychological: No Symptoms Endocrine: No Symptoms Hematologic/Lymphatic: No Symptoms Immunological/Allergic: No Symptoms All Other Systems: Reviewed and Negative - Past Medical History Pertinent Past Medical History: Yes Neurological History: No Pertinent History ENT History: No Pertinent History Cardiac History: No Pertinent History Respiratory History: No Pertinent History Endocrine Medical History: No Pertinent History Musculoskeletal History: No Pertinent History GI Medical History: No Pertinent History Psycho-Social History: No Pertinent History Female Reproductive Disorders: No Pertinent History, Menstrual Problems Other Medical History: KIDNEY STONES - Past Surgical History Past Surgical History: Yes Neuro Surgical History: No Pertinent History Cardiac: No Pertinent History Respiratory: No Pertinent History Gastrointestinal: Cholecystectomy Genitourinary: No Pertinent History Musculoskeletal: No Pertinent History Female Surgical History: Hysterectomy, Other Other Surgical History: UTERINE ABLASION - Social History Smoking Status: Never smoker Exposure to second hand smoke: No Drug Use: none Patient Lives Alone: No - Nursing Vital Signs Nursing Vital Signs: Initial Vital Signs Temperature 97.8 F 01/01/23 20:02 Pulse Rate 102 H 01/01/23 20:02 Respiratory Rate 16 01/01/23 20:02 Blood Pressure 145/82 01/01/23 20:02 O2 Sat by Pulse Oximetry 96 01/01/23 20:02 Pain Scale Pain Intensity 4 - Physical Exam General Appearance: no apparent distress, alert, anxiety Eye Exam: PERRL/EOMI, eyes nml inspection Ears, Nose, Throat Exam: normal ENT inspection, moist mucous membranes Neck Exam: normal inspection, non-tender, supple, full range of motion Respiratory Exam: normal breath sounds, lungs clear, airway intact, No chest tenderness, No respiratory distress Cardiovascular Exam: regular rate/rhythm, normal heart sounds, normal peripheral pulses Gastrointestinal/Abdomen Exam: soft, normal bowel sounds, tenderness (Right lower quadrant to palpation), guarding (Right lower quadrant to palpation), No rebound Pelvic Exam: not done Rectal Exam: not done Back Exam: normal inspection, normal range of motion, CVA tenderness (Right), vertebral tenderness Extremity Exam: normal inspection, normal range of motion, pelvis stable Neurologic Exam: alert, oriented x 3, cooperative, stick 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 II-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 nml as tested, normal mood/affect, nml cerebellar function, nml station & gait, sensation nml Skin Exam: normal color, warm, dry Lymphatic Exam: No adenopathy SpO2 Interpretation: normal O2 Delivery: Room Air - Course Nursing assessment & vital signs reviewed: Yes Ordered Tests: Active Orders 24 hr Category Date Time Status IV Insertion STAT Care 01/01/23 20:19 Active ABDOMEN AND PELVIS W/0 CONTRAS [CT] Stat Exams 01/01/23 20:20 Taken AMYLASE Stat Lab 01/01/23 20:42 Completed CBC W DIFF Stat Lab 01/01/23 20:42 Completed CMP Stat Lab 01/01/23 20:42 Completed CULTURE,URINE Stat Lab 01/01/23 20:23 Received LIPASE Stat Lab 01/01/23 20:42 Completed UA W/RFX UR CULTURE Stat Lab 01/01/23 20:23 Completed Medication Summary Discontinued Medications Generic Name Dose Route Start Last Admin Trade Name Aryaq PRN Reason Stop Dose Admin Hydromorphone HCl 1 mg 01/01/23 20:19 01/01/23 20:29 Hydromorphone 1 Mg/1ml Inj IV 01/01/23 20:20 1 mg STAT ONE Administration Hydromorphone HCl Confirm 01/01/23 20:24 Hydromorphone 1 Mg/1ml Inj Administered 01/01/23 20:25 Dose 1 mg .ROUTE .STK-MED ONE Sodium Chloride 1,000 mls @ 999 mls/hr 01/01/23 20:19 01/01/23 21:29 Sodium Chloride 0.9% 1000 Ml IV 01/01/23 21:19 Infused .Q1H1M STA Infusion Sodium Chloride Confirm 01/01/23 20:24 Sodium Chloride 0.9% 1000 Ml Administered 01/01/23 20:25 Dose 1,000 mls @ ud .ROUTE .STK-MED ONE Ceftriaxone Sodium/Dextrose 1 g in 50 mls @ 100 mls/hr 01/01/23 21:35 01/01/23 21:38 Rocephin 1 Gm-D5w 50 Ml Bag IV 01/01/23 22:04 100 mls/hr STAT STA 100 mls/hr Administration Ceftriaxone Sodium/Dextrose Confirm 01/01/23 21:38 Rocephin 1 Gm-D5w 50 Ml Bag Administered 01/01/23 21:39 Dose 1 g in 50 mls @ ud IV .STK-MED ONE Ketorolac Tromethamine 30 mg 01/01/23 20:19 01/01/23 20:29 Ketorolac Tromethamine 30 Mg/Ml Inj IV 01/01/23 20:20 30 mg STAT ONE Administration Ketorolac Tromethamine Confirm 01/01/23 20:24 Ketorolac Tromethamine 30 Mg/Ml Inj Administered 01/01/23 20:25 Dose 30 mg .ROUTE .STK-MED ONE Ondansetron HCl 4 mg 01/01/23 20:19 01/01/23 20:29 Ondansetron Hcl 4 Mg/2 Ml Vial IV 01/01/23 20:20 4 mg STAT ONE Administration Ondansetron HCl Confirm 01/01/23 20:24 Ondansetron Hcl 4 Mg/2 Ml Vial Administered 01/01/23 20:25 Dose 4 mg .ROUTE .STK-MED ONE Potassium Chloride 20 meq 01/01/23 21:23 01/01/23 21:38 Potassium Chloride Tab 10 Meq Tab PO 01/01/23 21:24 20 meq STAT ONE Administration Potassium Chloride Confirm 01/01/23 21:38 Potassium Chloride Tab 10 Meq Tab Administered 01/01/23 21:39 Dose 20 meq PO .STK-MED ONE Lab/Rad Data: Laboratory Result Diagrams 01/01/23 20:42 01/01/23 20:42 Laboratory Results 01/01/23 01/01/23 01/01/23 Range/Units 20:42 20:42 20:23 WBC 15.3 H (4.0-10.5) x10^3/uL RBC 3.85 L (4.1-5.4) x10^6/uL Hgb 11.7 L (12.0-16.0) g/dL Hct 35.1 (35-47) % MCV 91.2 (78-100) fL MCH 30.4 (26-32) pg MCHC 33.3 (32-36) g/dL RDW 11.9 (11.5-14.0) % Plt Count 350 (150-450) x10^3/uL MPV 9.7 (7.5-11.0) fL Gran % 77.9 H (36.0-66.0) % Immature Gran % (Auto) 0.4 (0.00-0.4) % Nucleat RBC Rel Count 0.0 (0.00-0.1) % Eos # (Auto) 0.02 (0-0.5) x10^3/uL Immature Gran # (Auto) 0.06 H (0.00-0.03) x10^3u/L Absolute Lymphs (auto) 1.92 (1.0-4.6) x10^3/uL Absolute Monos (auto) 1.30 (0.0-1.3) x10^3/uL Absolute Nucleated RBC 0.00 (0.00-0.01) x10^3u/L Lymphocytes % 12.6 L (24.0-44.0) % Monocytes % 8.5 (0.0-12.0) % Eosinophils % 0.1 (0.00-5.0) % Basophils % 0.5 (0.0-0.4) % Absolute Granulocytes 11.88 H (1.4-6.9) x10^3/uL Basophils # 0.08 (0-0.4) x10^3/uL Sodium 139 (137-145) mmol/L Potassium 3.2 L (3.5-5.1) mmol/L Chloride 105 (98-107) mmol/L Carbon Dioxide 24 (22-30) mmol/L Anion Gap 12.6 (5-15) MEQ/L BUN 13 (7-17) mg/dL Creatinine 0.69 (0.52-1.04) mg/dL Estimated GFR > 60.0 ML/MIN Glucose 111 H (74-106) mg/dL Calcium 8.8 (8.4-10.2) mg/dL Total Bilirubin 0.80 (0.2-1.3) mg/dL AST 31 (14-36) U/L ALT 23 (0-35) U/L Alkaline Phosphatase 86 (38-126) U/L Serum Total Protein 7.5 (6.3-8.2) g/dL Albumin 4.0 (3.5-5.0) g/dL Amylase 67 (30-110) U/L Lipase 112 (23-300) U/L Urine Color Red A (Yellow) Urine Appearance Turbid A (Clear) Urine pH 5.0 (4.6-8.0) Ur Specific [place] 1.020 (1.005-1.030) Urine Protein 100 A (Negative) Urine Glucose (UA) Negative (Negative) mg/dL Urine Ketones Negative (Negative) Urine Blood Moderate A (Negative) Urine Nitrite Positive A (Negative) Urine Bilirubin Small A (Negative) Urine Urobilinogen 0.2 (0.2) mg/dL Ur Leukocyte Esterase Large A (Negative) U Hyaline Cast (Auto) NONE SEEN (0-2) /LPF Urine Microscopic RBC >100 A (0-5) /HPF Urine Microscopic WBC 21-50 A (0-5) /HPF Ur Epithelial Cells Rare (None Seen) /HPF Urine Bacteria Many A (None Seen) /HPF Urine Culture Reflexed YES (NO) - Progress Progress: improved, re-examined Progress Note: 01/01/23 21:41 This patient's medical issue is 1 of moderate complexity. The level complexity and the work-up performed is based on review of the patient's past medical history, review of the patient's medication list, review of the patient's drug allergy list, history present illness and physical findings on examination. The work-up in this patient includes a placement of intravenous line, infusion of 1 L of normal saline solution, urinalysis, CBC, CMP, amylase level and a CAT scan of the abdomen pelvis. I reviewed the results of the above studies except for the CAT scan result which is pending. Patient has an obvious urinary tract infection with hematuria present. She has leukocytosis with a left shift. We provided her with 1 g of Rocephin intravenously. 01/01/23 22:06 CT scan of the abdomen pelvis without contrast was interpreted by the radiologist. I reviewed the impression. There is no evidence of any nephrolithiasis or ureterolithiasis. There is bladder wall inflammation suggesting cystitis. Counseled pt/family regarding: lab results, diagnosis, need for follow-up, rad results Medical Desision Making - Diagnostic Testing Diagnostic test were ordered, analyzed, and reviewed by me: Yes Radiological Interpretation: Reviewed by me, Teleradiologist Report - Risk of complications The pt has a mod risk of morbidity or mortality based on: Need for prescription drug management - Departure Departure Disposition: Home Clinical Impression: UTI (urinary tract infection), Hypokalemia, Cystitis Condition: Stable Critical Care Time: No Referrals: STEPH LEWIS [Primary Care Provider] - Follow up/PCP as directed Instructions: Urinary Tract Infection, Adult (DC) Additional Instructions: Drink plenty of clear liquids. Take your antibiotics as prescribed. Take your other medication as prescribed. Call your urologist and primary care provider tomorrow, 01/02/2023, and make them aware of your visit here to the emergency department. Make a follow-up appointment with each one of them for further evaluation management. Prescriptions: Ciprofloxacin [Cipro 500 MG] 500 mg PO BID #14 tablet
[2023-01-01] MEDS ORDERED: Hydromorphone 1 mg/ml Injection IV ONE (20:19)
[2023-01-01] MEDS ORDERED: Sodium Chloride 0.9% 1000 ML 1,000 ML IV STA (20:19)
[2023-01-01] MEDS ORDERED: TORAdol 30 mg Injection IV ONE (20:19)
[2023-01-01] MEDS ORDERED: Zofran 4 MG/2 ML VIAL IV ONE (20:19)
[2023-01-01] MEDS ORDERED: Sodium Chloride 0.9% 1000 ML 1,000 ML ONE (20:24)
[2023-01-01] MEDS ORDERED: TORAdol 30 mg Injection ONE (20:24)
[2023-01-01] MEDS ORDERED: Zofran 4 MG/2 ML VIAL ONE (20:24)
[2023-01-01] MEDS ORDERED: Hydromorphone 1 mg/ml Injection ONE (20:24)
[2023-01-01 20:45] LABS: Absolute Neutrophil Ct (ANC) 11.88 x10^3/uL (1.4-6.9); BASOPHIL % 0.5 % (0.0-0.4); Basophil (Absolute #) 0.08 x10^3/uL (0-0.4); Eosinophil % 0.1 % (0.00-5.0); Eosinophil (Absolute #) 0.02 x10^3/uL (0-0.5); Hematocrit 35.1 % (35-47); Hemoglobin 11.7 g/dL (12.0-16.0); IMMATURE GRAN # 0.06 x10^3u/L (0.00-0.03); IMMATURE GRAN % 0.4 % (0.00-0.4); Lymphocyte (Absolute #) 1.92 x10^3/uL (1.0-4.6); Lymphocytes % 12.6 % (24.0-44.0); Mean Cell Volume 91.2 fL (78-100); Mean Corpuscular Hemoglobin 30.4 pg (26-32); Mean Corpuscular Hgb Concent. 33.3 g/dL (32-36); Mean Platelet Volume 9.7 fL (7.5-11.0); Monocytes % 8.5 % (0.0-12.0); Neutrophil % 77.9 % (36.0-66.0); Platelet Count 350 x10^3/uL (150-450); Red Blood Count 3.85 x10^6/uL (4.1-5.4); Red Cell Distribution Width 11.9 % (11.5-14.0); White Blood Count 15.3 x10^3/uL (4.0-10.5)
[2023-01-01 20:55] LABS: ALKALINE PHOSPHATASE 86 U/L (38-126); AMYLASE 67 U/L (30-110); ANION GAP 12.6 MEQ/L (5-15); BLOOD UREA NITROGEN 13 mg/dL (7-17); CHLORIDE 105 mmol/L (98-107); Calcium 8.8 mg/dL (8.4-10.2); Carbon Dioxide 24 mmol/L (22-30); Creatinine 1 0.69 mg/dL (0.52-1.04); EST GLOMERULAR FILTRATION RATE > 60.0 ML/MIN; Glucose 111 mg/dL (74-106); LIPASE 112 U/L (23-300); Potassium 3.2 mmol/L (3.5-5.1); SGOT/AST 31 U/L (14-36); SGPT/ALT 23 U/L (0-35); SODIUM 139 mmol/L (137-145); Total Protein 7.5 g/dL (6.3-8.2)
[2023-01-01] MEDS ORDERED: Klor Con PO ONE ×2 (21:23→21:38)
[2023-01-01] MEDS ORDERED: ROCEPHIN 1 Gm-D5w 50 ml Bag** 1 G/50 ML IVPB IV STA (21:35)
[2023-01-01 21:37] LABS: Appearance Turbid (Clear); Bilirubin Small (Negative); Blood Moderate (Negative); Epithelial Cells Rare /HPF (None Seen); Glucose, Urine Negative (Negative); Hyaline Casts NONE SEEN /LPF (0-2); Ketones Negative (Negative); Leukocyte Esterase Large (Negative); Nitrite Positive (Negative); Protein,Urine Dip 100 (Negative); RBC >100 /HPF (0-5); Urobilinogen 0.2 mg/dL (0.2)
[2023-01-01 21:38] LABS: ADD URINE CULTURE? YES (NO); Bacteria Many /HPF (None Seen); WBC 21-50 /HPF (0-5)
[2023-01-01] MEDS ORDERED: ROCEPHIN 1 Gm-D5w 50 ml Bag** 1 G/50 ML IVPB IV ONE (21:38)
[2023-01-01 21:52] VITALS: O2SAT 96
[2023-01-01 22:01] VITALS: BP 135/83; PULSE 96
--- NOTE | 2023-01-02 08:44 | XRAY ---
Indication: Right flank pain. Hematuria. Multiple contiguous axial images obtained through the abdomen and pelvis without contrast using renal stone protocol. Comparison: January 29, 2019 Lung bases are clear. Heart not enlarged. No renal calculus or evidence for obstructive uropathy in either system. Mildly distended urinary bladder demonstrates circumferential wall thickening with new stranding favoring cystitis in the right clinical setting. No free fluid/air. Stomach is distended with food. Noncontrasted stomach and bowel loops appear nonobstructed with normal appendix. Again cholecystectomy. Remaining liver, pancreas, spleen, adrenal glands, kidneys, ureters, bladder, and aorta are unremarkable for noncontrast exam. Osseous structures intact. Impression: 1. Negative renal calculus or evidence for obstructive uropathy. 2. Urinary bladder circumferential wall thickening with stranding. Rule out cystitis. 3. Remaining CT abdomen/pelvis without contrast exam is negative.
== END 2023-01-01 22:08 | disposition home or self-care (01) ==
LOC: ED 19:54
DX: N30.91 Cystitis, unspecified with hematuria (principal); E87.6 Hypokalemia; R10.31 Right lower quadrant pain; R10.9 Unspecified abdominal pain; Z79.899 Other long term (current) drug therapy
CPT/HCPCS: 36000; 36415; 74176; 80053; 81001; 82150; 83690; 85025; 87077; 87086; 87186; 96360; 96365; 96374; 96375; 99284; J0696; J1170; J1885; J2405; A9270-GY

== ENCOUNTER 2023-01-06 00:05 | Emergency (ER) | payer BC ==
--- NOTE | 2023-01-06 00:50 | ERPHSYRPT ---
- History of Present Illness Time Seen by Provider: 01/06/23 00:35 Source: patient Exam Limitations: no limitations Patient Subjective Stated Complaint: pt states I haven't been able to urinate since 2 Triage Nursing Assessment: pt ambulated into the er; pt is axo x4; c/o urinary retention; c/o N/V; skin PDW; tenderness to rt flank region; no respiratory distress present; vitals wnl Physician History: This is a 42-year-old white female patient that was seen in our emergency department approximately 4 days ago with a complaint of gross hematuria and right flank pain. Work-up at that time included a CAT scan of the abdomen pelvis without contrast that showed bladder wall thickening/inflammation suggesting cystitis. Patient received a prescription for Cipro that she is taken for approximately 4 days. Patient states today that she was out working in the yard for over 3 hours and drinking plenty of fluids per her report but then came inside and was nauseated vomited twice. She has not had much urine output since 2:00 this afternoon. Patient is status postcholecystectomy and hysterectomy. Patient is concerned that she might be dehydrated and she had the persistent and new symptoms described above. She has no chest pain she has no shortness of breath. Timing/Duration: today Activites at Onset: none Quality: aching Onset Location: suprapubic, right flank Severity of Pain-Max: mild Severity of Pain-Current: mild Sexual intercourse history: non-contributory Modifying Factors: Improves With: vomiting (Twice), other (Decreased urine output) Associated Symptoms: nausea, vomiting, other (Gross hematuria), No chills Allergies/Adverse Reactions: No Known Drug Allergies Allergy (Verified 01/01/23 20:09) Home Medications: Ospemifene [Osphena] 60 mg PO DAILY 01/29/19 [History] Citalopram Hydrobromide 20 mg* [ceLEXa 20 MG] 20 mg PO DAILY 01/01/23 [History] Estradiol [Sandrine] 0.05 mg TOP 01/01/23 [History] Famotidine 40 mg PO HS 01/01/23 [History] Metoprolol Succinate 50 mg [Toprol Xl 50 MG] 50 mg PO BID 01/01/23 [History] Omeprazole 40 mg PO DAILY 01/01/23 [History] Rosuvastatin Calcium 10 mg PO DAILY 01/01/23 [History] Semaglutide [Ozempic] 1 mg SQ WEEKLY 01/06/23 [History] Hx Tetanus, Diphtheria Vaccination/Date Given: No Hx Influenza Vaccination/Date Given: No Hx Pneumococcal Vaccination/Date Given: No Travel Risk - International Travel Have you traveled outside of the country in past 3 weeks: No - Coronavirus Screening Are you exhibiting any of the following symptoms?: No Close contact with a COVID-19 positive Pt in past 14-21 Days: No - Vaccine Status Have you recieved a Covid-19 vaccination: Yes 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[employer]: [employer] - Vaccination Dates Date of 2cond Vaccination (if applicable): 09/25/2021 - Review of Systems Constitutional: No Symptoms Eyes: No Symptoms Ears, Nose, & Throat: No Symptoms Respiratory: No Symptoms Cardiac: No Symptoms Abdominal/Gastrointestinal: No Symptoms Genitourinary Symptoms: Hematuria, Other (Decreased urine output) Musculoskeletal: No Symptoms Skin: No Symptoms Neurological: No Symptoms Psychological: No Symptoms Endocrine: No Symptoms Hematologic/Lymphatic: No Symptoms Immunological/Allergic: No Symptoms All Other Systems: Reviewed and Negative - Past Medical History Pertinent Past Medical History: Yes Neurological History: No Pertinent History ENT History: No Pertinent History Cardiac History: No Pertinent History Respiratory History: No Pertinent History Endocrine Medical History: No Pertinent History Musculoskeletal History: No Pertinent History GI Medical History: No Pertinent History History: No Pertinent History Psycho-Social History: No Pertinent History Female Reproductive Disorders: No Pertinent History, Menstrual Problems Other Medical History: KIDNEY STONES - Past Surgical History Past Surgical History: Yes Neuro Surgical History: No Pertinent History Cardiac: No Pertinent History Respiratory: No Pertinent History Gastrointestinal: Cholecystectomy Genitourinary: No Pertinent History Musculoskeletal: No Pertinent History Female Surgical History: Hysterectomy, Other Other Surgical History: UTERINE ABLASION - Social History Smoking Status: Never smoker Exposure to second hand smoke: No Drug Use: none Patient Lives Alone: No - Female History Hx Now: No - Nursing Vital Signs Nursing Vital Signs: Initial Vital Signs Blood Pressure 138/81 01/06/23 00:13 O2 Sat by Pulse Oximetry 98 01/06/23 00:13 Pain Scale Pain Intensity 3 - Physical Exam General Appearance: no apparent distress, alert, anxiety Eye Exam: PERRL/EOMI, eyes nml inspection Ears, Nose, Throat Exam: normal ENT inspection, moist mucous membranes Neck Exam: normal inspection, non-tender, supple, full range of motion Respiratory Exam: normal breath sounds, lungs clear, airway intact, No chest tenderness, No respiratory distress Cardiovascular Exam: regular rate/rhythm, normal heart sounds, normal peripheral pulses Gastrointestinal/Abdomen Exam: tenderness (Suprapubic tenderness to palpation), guarding (Tenderness to palp patient in the suprapubic region) Pelvic Exam: not done Rectal Exam: not done Back Exam: normal inspection, normal range of motion, No CVA tenderness, No vertebral tenderness Extremity Exam: normal inspection, normal range of motion, pelvis stable Neurologic Exam: alert, oriented x 3, cooperative, felt cutter II-XII nml as tested, normal mood/affect, nml cerebellar function, nml station & gait, sensation nml Skin Exam: normal color, warm, dry Lymphatic Exam: No adenopathy SpO2 Interpretation: normal SpO2: 97 O2 Delivery: Room Air - Course Nursing assessment & vital signs reviewed: Yes Ordered Tests: Active Orders 24 hr Category Date Time Status IV Insertion STAT Care 01/06/23 01:08 Active ABDOMEN AND PELVIS W/0 CONTRAS [CT] Stat Exams 01/06/23 00:25 Taken CBC W DIFF Stat Lab 01/06/23 01:18 Completed CMP Stat Lab 01/06/23 01:18 Completed CULTURE,URINE Stat Lab 01/06/23 00:39 Received UA W/RFX UR CULTURE Stat Lab 01/06/23 00:39 Completed Medication Summary Generic Name Dose Route Start Last Admin Trade Name Freq PRN Reason Stop Dose Admin Sodium Chloride 500 mls @ 500 mls/hr 01/06/23 02:49 Sodium Chloride 0.9% 500 Ml IV 01/06/23 03:48 .Q1H ONE Discontinued Medications Generic Name Dose Route Start Last Admin Trade Name Freq PRN Reason Stop Dose Admin Sodium Chloride 1,000 mls @ 999 mls/hr 01/06/23 01:08 01/06/23 02:33 Sodium Chloride 0.9% 1000 Ml IV 01/06/23 02:08 Infused .Q1H1M STA Infusion Ceftriaxone Sodium/Dextrose 1 g in 50 mls @ 100 mls/hr 01/06/23 01:09 07/07/31 02:03 Rocephin 1 Gm-D5w 50 Ml Bag IV 01/06/23 01:38 Infused STAT STA Infusion Sodium Chloride Confirm 01/06/23 01:31 Sodium Chloride 0.9% 1000 Ml Administered 01/06/23 01:32 Dose 1,000 mls @ ud .ROUTE .STK-MED ONE Ceftriaxone Sodium/Dextrose Confirm 01/06/23 01:31 Rocephin 1 Gm-D5w 50 Ml Bag Administered 01/06/23 01:32 Dose 1 g in 50 mls @ ud IV .STK-MED ONE Ondansetron HCl 4 mg 01/06/23 01:08 01/06/23 01:32 Ondansetron Hcl 4 Mg/2 Ml Vial IV 01/06/23 01:09 4 mg STAT ONE Administration Ondansetron HCl Confirm 01/06/23 01:31 Ondansetron Hcl 4 Mg/2 Ml Vial Administered 01/06/23 01:32 Dose 4 mg .ROUTE .STK-MED ONE Lab/Rad Data: Laboratory Result Diagrams 01/06/23 01:18 01/06/23 01:18 Laboratory Results 01/06/23 01/06/23 01/06/23 Range/Units 01:18 01:18 00:39 WBC 15.2 H (4.0-10.5) x10^3/uL RBC 4.22 (4.1-5.4) x10^6/uL Hgb 12.6 (12.0-16.0) g/dL Hct 38.5 (35-47) % MCV 91.2 (78-100) fL MCH 29.9 (26-32) pg MCHC 32.7 (32-36) g/dL RDW 11.9 (11.5-14.0) % Plt Count 357 (150-450) x10^3/uL MPV 9.0 (7.5-11.0) fL Gran % 77.7 H (36.0-66.0) % Immature Gran % (Auto) 0.5 H (0.00-0.4) % Nucleat RBC Rel Count 0.0 (0.00-0.1) % Eos # (Auto) 0.03 (0-0.5) x10^3/uL Immature Gran # (Auto) 0.08 H (0.00-0.03) x10^3u/L Absolute Lymphs (auto) 1.81 (1.0-4.6) x10^3/uL Absolute Monos (auto) 1.40 H (0.0-1.3) x10^3/uL Absolute Nucleated RBC 0.00 (0.00-0.01) x10^3u/L Lymphocytes % 11.9 L (24.0-44.0) % Monocytes % 9.2 (0.0-12.0) % Eosinophils % 0.2 (0.00-5.0) % Basophils % 0.5 (0.0-0.4) % Absolute Granulocytes 11.84 H (1.4-6.9) x10^3/uL Basophils # 0.07 (0-0.4) x10^3/uL Sodium 136 L (137-145) mmol/L Potassium 4.0 (3.5-5.1) mmol/L Chloride 101 (98-107) mmol/L Carbon Dioxide 25 (22-30) mmol/L Anion Gap 13.6 (5-15) MEQ/L BUN 23 H (7-17) mg/dL Creatinine 2.35 H (0.52-1.04) mg/dL Estimated GFR 23.9 ML/MIN Glucose 111 H (74-106) mg/dL Calcium 8.8 (8.4-10.2) mg/dL Total Bilirubin 0.70 (0.2-1.3) mg/dL AST 32 (14-36) U/L ALT 22 (0-35) U/L Alkaline Phosphatase 85 (38-126) U/L Serum Total Protein 7.7 (6.3-8.2) g/dL Albumin 4.1 (3.5-5.0) g/dL Urine Color Dark Yellow A (Yellow) Urine Appearance Turbid A (Clear) Urine pH 5.0 (4.6-8.0) Ur Specific [place] 1.020 (1.005-1.030) Urine Protein 300 A (Negative) Urine Glucose (UA) 250 A (Negative) mg/dL Urine Ketones Trace A (Negative) Urine Blood Small A (Negative) Urine Nitrite Negative (Negative) Urine Bilirubin Negative (Negative) Urine Urobilinogen 0.2 (0.2) mg/dL Ur Leukocyte Esterase Trace A (Negative) U Hyaline Cast (Auto) 11-20 (0-2) /LPF Urine Microscopic RBC 0-2 (0-5) /HPF Urine Microscopic WBC 6-10 A (0-5) /HPF Ur Epithelial Cells Many A (None Seen) /HPF Urine Bacteria Rare A (None Seen) /HPF Urine Culture Reflexed ORDERED SEPARATELY (NO) - Progress Progress: improved, re-examined Air Movement: good Progress Note: 01/06/23 02:51 CT scan of the abdomen pelvis without contrast shows no acute intra-abdominal or intra pelvic findings. The bladder is emptied This patient's medical issue is 1 of moderate complexity. Level of complexity and the work-up performed is based on review of the patient's past medical history, review of the patient's medication list, review of the patient's drug allergy list, history of present illness and physical examination findings. The work-up of this patient includes placement of intravenous line, infusion of normal saline solution, CBC, CMP, CAT scan of the abdomen pelvis and urinalysis. The urinalysis was reviewed as well as the other laboratory work-up. There is persistent but improving urinary tract infection. CAT scan is of no change compared to that most recent CAT scan approximately 4 days ago. Blood Culture(s) Obtained: No Antibiotics given: Yes Counseled pt/family regarding: lab results, diagnosis, need for follow-up, rad results Medical Desision Making - Diagnostic Testing Diagnostic test were ordered, analyzed, and reviewed by me: Yes Radiological Interpretation: Reviewed by me, Teleradiologist Report - Risk of complications The pt has a mod risk of morbidity or mortality based on: Need for prescription drug management - Departure Departure Disposition: Home Clinical Impression: Flank pain, Decreased urine output Condition: Stable Critical Care Time: No Referrals: STEPH LEWIS [Primary Care Provider] - Follow up/PCP as directed Additional Instructions: Drink plenty of clear liquids. Stay out of the sun. Continue your antibiotics as prescribed. Call your urologist on 01/08/2023 to make them aware of your visit here in the emergency department to see if they want to change your cystoscopy date and time. Prescriptions: Ondansetron ODT 4 MG [Zofran Odt 4 mg] 4 mg PO Q6H PRN PRN #10 tablet PRN Reason: Vomiting
[2023-01-06 00:52] LABS: ADD URINE CULTURE? ORDERED SEPARATELY (NO); Appearance Turbid (Clear); Bacteria Rare /HPF (None Seen); Bilirubin Negative (Negative); Blood Small (Negative); Epithelial Cells Many /HPF (None Seen); Glucose, Urine 250 mg/dL (Negative); Ketones Trace (Negative); Leukocyte Esterase Trace (Negative); Nitrite Negative (Negative); Protein,Urine Dip 300 (Negative); RBC 0-2 /HPF (0-5); Urobilinogen 0.2 mg/dL (0.2)
[2023-01-06] MEDS ORDERED: Zofran 4 MG/2 ML VIAL IV ONE (01:08)
[2023-01-06] MEDS ORDERED: Sodium Chloride 0.9% 1000 ML 1,000 ML IV STA (01:08)
[2023-01-06] MEDS ORDERED: ROCEPHIN 1 Gm-D5w 50 ml Bag** 1 G/50 ML IVPB IV STA (01:09)
[2023-01-06] MEDS ORDERED: ROCEPHIN 1 Gm-D5w 50 ml Bag** 1 G/50 ML IVPB IV ONE (01:31)
[2023-01-06] MEDS ORDERED: Sodium Chloride 0.9% 1000 ML 1,000 ML ONE (01:31)
[2023-01-06] MEDS ORDERED: Zofran 4 MG/2 ML VIAL ONE (01:31)
[2023-01-06 01:32] LABS: Absolute Neutrophil Ct (ANC) 11.84 x10^3/uL (1.4-6.9); BASOPHIL % 0.5 % (0.0-0.4); Basophil (Absolute #) 0.07 x10^3/uL (0-0.4); Eosinophil % 0.2 % (0.00-5.0); Eosinophil (Absolute #) 0.03 x10^3/uL (0-0.5); Hematocrit 38.5 % (35-47); Hemoglobin 12.6 g/dL (12.0-16.0); IMMATURE GRAN # 0.08 x10^3u/L (0.00-0.03); IMMATURE GRAN % 0.5 % (0.00-0.4); Lymphocyte (Absolute #) 1.81 x10^3/uL (1.0-4.6); Lymphocytes % 11.9 % (24.0-44.0); Mean Cell Volume 91.2 fL (78-100); Mean Corpuscular Hemoglobin 29.9 pg (26-32); Mean Corpuscular Hgb Concent. 32.7 g/dL (32-36); Monocytes % 9.2 % (0.0-12.0); Neutrophil % 77.7 % (36.0-66.0); Platelet Count 357 x10^3/uL (150-450); Red Blood Count 4.22 x10^6/uL (4.1-5.4); Red Cell Distribution Width 11.9 % (11.5-14.0); White Blood Count 15.2 x10^3/uL (4.0-10.5)
[2023-01-06 01:45] LABS: ALBUMIN 4.1 g/dL (3.5-5.0); ANION GAP 13.6 MEQ/L (5-15); BILIRUBIN,TOTAL 0.7 mg/dL (0.2-1.3); Calcium 8.8 mg/dL (8.4-10.2); Creatinine 1 2.35 mg/dL (0.52-1.04); EST GLOMERULAR FILTRATION RATE 23.9 ML/MIN; Total Protein 7.7 g/dL (6.3-8.2)
[2023-01-06] MEDS ORDERED: Sodium Chloride 0.9% 500 ML 500 ML IV ONE ×2 (02:49→03:05)
--- NOTE | 2023-01-06 03:07 | XRAY ---
CLINICAL HISTORY:urinary retention, flank pain COMPARISON:01/01/2023. TECHNIQUES:Multiple axial cuts were taken through abdomen without intravenous contrast administration. Coronal and sagittal reconstructions were done. FINDINGS: Normal CT density of liver parenchyma with no focal lesions seen within the limitations of noncontrast study. No intra or extrahepatic biliary dilatation. Gallbladder is surgically removed. Normal size and CT density of the spleen with no splenic focal lesions. Normal CT appearance of the pancreas, no solid or cystic focal lesions seen. No peripancreatic fluid collections or fat stranding seen. Both kidneys are normal in sizes with no mass or back pressure obstructive changes. Normal CT appearance of both adrenal glands with no adrenal masses. No paraaortic adenopathies. Imaged bowel structures appear normal. No bowel wall thickening. No free fluid in abdomen. The urinary bladder is empty. Uterus is surgically removed. No adnexal mass. No acute osseous abnormality or suspicious bony lesions. Scanned parts of lung bases are of normal CT appearance with no lung infiltration or pleural effusion. IMPRESSION: No acute intra-abdominal abnormality. Stable findings when compared with prior study. Electronically Signed by: Donna Jones MD. 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
[2023-01-06 04:05] VITALS: BP 125/80; PULSE 84; O2SAT 99
== END 2023-01-06 04:21 | disposition home or self-care (01) ==
LOC: ED 00:05
DX: R10.9 Unspecified abdominal pain (principal); R33.9 Retention of urine, unspecified; R11.2 Nausea with vomiting, unspecified; Z79.85 Long-term (current) use of injectable non-insulin antidiabetic drugs; Z79.899 Other long term (current) drug therapy
CPT/HCPCS: 36000; 36415; 74176; 80053; 81001; 85025; 87086; 96360; 96361; 96365; 96374; 99284; J0696; J2405

== ENCOUNTER 2023-05-24 20:33 | Emergency (ER) | payer BC ==
--- NOTE | 2023-05-24 20:39 | ERPHSYRPT ---
- History of Present Illness Time Seen by Provider: 05/24/23 20:38 Source: patient Exam Limitations: no limitations Physician History: This is a 42-year-old white female patient who has no known cardiac history and presents to the emergency department with sudden onset of dizziness/lightheadedness that occurred approximately 7 PM prior to arrival. Associated with the lightheadedness was left arm pain which she describes as "pinching" that begins in the left shoulder and travels distally to the left hand. Patient also noticed nausea and mild shortness of breath. She has never had anything like this before. She does not complain of chest Pain. Patient has a history of hyperlipidemia, diabetes, gastroesophageal reflux disease, hypertension and depression. Timing/Duration: today Severity: mild Character of Deficits: none Deficits: no difficulties Baseline/Normal Cognition: alert oriented x 3 Current Cognition: alert oriented x 3 Baseline Gait: walks w/o assistance Associated Symptoms: denies symptoms Allergies/Adverse Reactions: No Known Drug Allergies Allergy (Verified 05/24/23 20:57) Home Medications: Ospemifene [Osphena] 60 mg PO DAILY 01/29/19 [History] Citalopram Hydrobromide 20 mg* [ceLEXa 20 MG] 20 mg PO DAILY 01/01/23 [History] Estradiol [Sandrine] 0.05 mg TOP UD 01/01/23 [History] Famotidine 40 mg PO HS 01/01/23 [History] Metoprolol Succinate 50 mg [Toprol Xl 50 MG] 50 mg PO BID 01/01/23 [History] Omeprazole 40 mg PO DAILY 01/01/23 [History] Rosuvastatin Calcium 10 mg PO DAILY 01/01/23 [History] Semaglutide [Ozempic] 1 mg SQ WEEKLY 01/06/23 [History] Hx Tetanus, Diphtheria Vaccination/Date Given: No Hx Influenza Vaccination/Date Given: No Hx Pneumococcal Vaccination/Date Given: No Travel Risk - International Travel Have you traveled outside of the country in past 3 weeks: No - Coronavirus Screening Are you exhibiting any of the following symptoms?: No Close contact with a COVID-19 positive Pt in past 14-21 Days: No - Vaccine Status Have you recieved a Covid-19 vaccination: Yes 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[employer] - Vaccination Dates Date of 2cond Vaccination (if applicable): 09/25/2021 - Review of Systems Constitutional: No Symptoms Eyes: No Symptoms Ears, Nose, & Throat: No Symptoms Respiratory: No Symptoms Cardiac: No Symptoms Abdominal/Gastrointestinal: Nausea Genitourinary Symptoms: No Symptoms Musculoskeletal: Joint Pain (Left shoulder pinching) Skin: No Symptoms Neurological: Dizziness Psychological: No Symptoms Endocrine: No Symptoms Hematologic/Lymphatic: No Symptoms Immunological/Allergic: No Symptoms All Other Systems: Reviewed and Negative - Past Medical History Pertinent Past Medical History: Yes Neurological History: No Pertinent History ENT History: No Pertinent History Cardiac History: No Pertinent History Respiratory History: No Pertinent History Endocrine Medical History: No Pertinent History Musculoskeletal History: No Pertinent History GI Medical History: No Pertinent History History: No Pertinent History Psycho-Social History: No Pertinent History Female Reproductive Disorders: No Pertinent History, Menstrual Problems Other Medical History: KIDNEY STONES - Past Surgical History Past Surgical History: Yes Neuro Surgical History: No Pertinent History Cardiac: No Pertinent History Respiratory: No Pertinent History Gastrointestinal: Cholecystectomy Genitourinary: No Pertinent History Musculoskeletal: No Pertinent History Female Surgical History: Hysterectomy, Other Other Surgical History: UTERINE ABLASION - Social History Smoking Status: Never smoker Exposure to second hand smoke: No Drug Use: none Patient Lives Alone: No - Nursing Vital Signs Nursing Vital Signs: Initial Vital Signs Temperature 98.3 F 05/24/23 20:43 Pulse Rate 108 H 05/24/23 20:43 Respiratory Rate 16 05/24/23 20:43 Blood Pressure 155/87 05/24/23 20:43 O2 Sat by Pulse Oximetry 99 05/24/23 20:43 Pain Scale Pain Intensity 6 - Eron Coma Scale Best Eye Response (Hazen): (4) open spontaneously Best Verbal Response (Hazen): (5) oriented Best Motor Response (Hazen): (6) obeys commands Hazen Total: 15 - Physical Exam General Appearance: no apparent distress, alert, anxiety Eye Exam: bilateral eye: normal inspection, PERRL, EOMI Ears, Nose, Throat Exam: normal ENT inspection, moist mucous membranes Neck Exam: normal inspection, non-tender, supple, full range of motion Respiratory: normal breath sounds, lungs clear, airway intact, No chest tenderness, No respiratory distress Cardiovascular: normal peripheral pulses, tachycardia Gastrointestinal: soft, normal bowel sounds, No tenderness Pelvic Exam: not done Rectal Exam: not done Back Exam: normal inspection, normal range of motion, No CVA tenderness, No vertebral tenderness Extremity Exam: normal inspection, normal range of motion, pelvis stable Mental Status: alert, oriented x 3, cooperative director translation Exam: normal hearing, normal speech, PERRL Coordination/Gait: normal finger to nose, normal gait, normal cerebellar function Motor/Sensory: no motor deficit, no sensory deficit, no pronator drift Skin Exam: normal color, warm, dry SpO2 Interpretation: normal O2 Delivery: Room Air - Course Nursing assessment & vital signs reviewed: Yes EKG Interpreted by Me: RATE (96), Sinus Rhythm, NORMAL AXIS, NORMAL INTERVALS, NORMAL QRS, NORMAL ST-T, Other (No acute ischemic changes on today's twelve-lead EKG.) Ordered Tests: Active Orders 24 hr Category Date Time Status Clean Catch Urine Specimen STAT Care 05/24/23 21:00 Active EKG-ER Only STAT Care 05/24/23 21:00 Active HEAD WITHOUT CONTRAST [CT] Stat Exams 05/24/23 21:13 Taken CBC W DIFF Stat Lab 05/24/23 21:20 Completed CMP Stat Lab 05/24/23 21:20 Completed ETHYL ALCOHOL Stat Lab 05/24/23 21:20 Completed MAGNESIUM Stat Lab 05/24/23 21:20 Completed TROPONIN Q4H Lab 05/24/23 21:20 Completed TROPONIN Q4H Lab 05/25/23 01:15 Ordered TROPONIN Q4H Lab 05/25/23 05:15 Ordered UA W/RFX UR CULTURE Stat Lab 05/24/23 21:29 Completed Urine Triage Profile Stat Lab 05/24/23 21:40 Completed Medication Summary Discontinued Medications Generic Name Dose Route Start Last Admin Trade Name Malik PRN Reason Stop Dose Admin Ondansetron HCl 4 mg 05/24/23 21:31 05/24/23 21:33 Zofran 4 Mg/Udtablet Orally Disintegrating PO 05/24/23 21:32 4 mg STAT ONE Administration Ondansetron HCl Confirm 05/24/23 21:33 Zofran 4 Mg/Udtablet Orally Disintegrating Administered 05/24/23 21:34 Dose 4 mg .ROUTE .STK-MED ONE Lab/Rad Data: Laboratory Result Diagrams 05/24/23 21:20 05/24/23 21:20 Laboratory Results 05/24/23 05/24/23 05/24/23 Range/Units 21:40 21:29 21:20 WBC (4.0-10.5) x10^3/uL RBC (4.1-5.4) x10^6/uL Hgb (12.0-16.0) g/dL Hct (35-47) % MCV (78-100) fL MCH (26-32) pg MCHC (32-36) g/dL RDW (11.5-14.0) % Plt Count (150-450) x10^3/uL MPV (7.5-11.0) fL Gran % (36.0-66.0) % Immature Gran % (Auto) (0.00-0.4) % Nucleat RBC Rel Count (0.00-0.1) % Eos # (Auto) (0-0.5) x10^3/uL Immature Gran # (Auto) (0.00-0.03) x10^3u/L Absolute Lymphs (auto) (1.0-4.6) x10^3/uL Absolute Monos (auto) (0.0-1.3) x10^3/uL Absolute Nucleated RBC (0.00-0.01) x10^3u/L Lymphocytes % (24.0-44.0) % Monocytes % (0.0-12.0) % Eosinophils % (0.00-5.0) % Basophils % (0.0-0.4) % Absolute Granulocytes (1.4-6.9) x10^3/uL Basophils # (0-0.4) x10^3/uL Sodium (137-145) mmol/L Potassium (3.5-5.1) mmol/L Chloride (98-107) mmol/L Carbon Dioxide (22-30) mmol/L Anion Gap (5-15) MEQ/L BUN (7-17) mg/dL Creatinine (0.52-1.04) mg/dL Estimated GFR ML/MIN Glucose (74-106) mg/dL Calcium (8.4-10.2) mg/dL Magnesium (1.6-2.3) mg/dL Total Bilirubin (0.2-1.3) mg/dL AST (14-36) U/L ALT (0-35) U/L Alkaline Phosphatase (38-126) U/L Troponin I < 0.012 (0.000-0.034) ng/mL Serum Total Protein (6.3-8.2) g/dL Albumin (3.5-5.0) g/dL Urine Color Yellow (Yellow) Urine Appearance Clear (Clear) Urine pH 5.5 (4.6-8.0) Ur Specific [place] 1.015 (1.005-1.030) Urine Protein Negative (Negative) Urine Glucose (UA) Negative (Negative) mg/dL Urine Ketones Negative (Negative) Urine Blood Negative (Negative) Urine Nitrite Negative (Negative) Urine Bilirubin Negative (Negative) Urine Urobilinogen 0.2 (0.2) mg/dL Ur Leukocyte Esterase Negative (Negative) U Hyaline Cast (Auto) NONE SEEN (0-2) /LPF Urine Microscopic RBC 0-2 (0-5) /HPF Urine Microscopic WBC 0-2 (0-5) /HPF Ur Epithelial Cells Rare (None Seen) /HPF Urine Bacteria None Seen (None Seen) /HPF Urine Culture Reflexed NO (NO) Urine Opiates Level NEGATIVE (NEGATIVE) Ur Methadone NEGATIVE (NEGATIVE) Urine Barbiturates NEGATIVE (NEGATIVE) Ur Phencyclidine (PCP) NEGATIVE (NEGATIVE) Urine Amphetamine NEGATIVE (NEGATIVE) U Benzodiazepine Level NEGATIVE (NEGATIVE) Urine Cocaine NEGATIVE (NEGATIVE) Urine Marijuana (THC) NEGATIVE (NEGATIVE) Ethyl Alcohol (0-10) mg/dL 05/24/23 05/24/23 Range/Units 21:20 21:20 WBC 11.1 H (4.0-10.5) x10^3/uL RBC 3.95 L (4.1-5.4) x10^6/uL Hgb 12.1 (12.0-16.0) g/dL Hct 37.2 (35-47) % MCV 94.2 (78-100) fL MCH 30.6 (26-32) pg MCHC 32.5 (32-36) g/dL RDW 11.6 (11.5-14.0) % Plt Count 340 (150-450) x10^3/uL MPV 9.3 (7.5-11.0) fL Gran % 67.3 H (36.0-66.0) % Immature Gran % (Auto) 0.3 (0.00-0.4) % Nucleat RBC Rel Count 0.0 (0.00-0.1) % Eos # (Auto) 0.03 (0-0.5) x10^3/uL Immature Gran # (Auto) 0.03 (0.00-0.03) x10^3u/L Absolute Lymphs (auto) 2.68 (1.0-4.6) x10^3/uL Absolute Monos (auto) 0.82 (0.0-1.3) x10^3/uL Absolute Nucleated RBC 0.00 (0.00-0.01) x10^3u/L Lymphocytes % 24.2 (24.0-44.0) % Monocytes % 7.4 (0.0-12.0) % Eosinophils % 0.3 (0.00-5.0) % Basophils % 0.5 (0.0-0.4) % Absolute Granulocytes 7.48 H (1.4-6.9) x10^3/uL Basophils # 0.05 (0-0.4) x10^3/uL Sodium 138 (137-145) mmol/L Potassium 3.6 (3.5-5.1) mmol/L Chloride 104 (98-107) mmol/L Carbon Dioxide 25 (22-30) mmol/L Anion Gap 12.2 (5-15) MEQ/L BUN 18 H (7-17) mg/dL Creatinine 0.79 (0.52-1.04) mg/dL Estimated GFR 94.5 ML/MIN Glucose 134 H (74-106) mg/dL Calcium 9.2 (8.4-10.2) mg/dL Magnesium 1.9 (1.6-2.3) mg/dL Total Bilirubin 0.50 (0.2-1.3) mg/dL AST 32 (14-36) U/L ALT 31 (0-35) U/L Alkaline Phosphatase 80 (38-126) U/L Troponin I (0.000-0.034) ng/mL Serum Total Protein 7.7 (6.3-8.2) g/dL Albumin 4.3 (3.5-5.0) g/dL Urine Color (Yellow) Urine Appearance (Clear) Urine pH (4.6-8.0) Ur Specific [place] (1.005-1.030) Urine Protein (Negative) Urine Glucose (UA) (Negative) mg/dL Urine Ketones (Negative) Urine Blood (Negative) Urine Nitrite (Negative) Urine Bilirubin (Negative) Urine Urobilinogen (0.2) mg/dL Ur Leukocyte Esterase (Negative) U Hyaline Cast (Auto) (0-2) /LPF Urine Microscopic RBC (0-5) /HPF Urine Microscopic WBC (0-5) /HPF Ur Epithelial Cells (None Seen) /HPF Urine Bacteria (None Seen) /HPF Urine Culture Reflexed (NO) Urine Opiates Level (NEGATIVE) Ur Methadone (NEGATIVE) Urine Barbiturates (NEGATIVE) Ur Phencyclidine (PCP) (NEGATIVE) Urine Amphetamine (NEGATIVE) U Benzodiazepine Level (NEGATIVE) Urine Cocaine (NEGATIVE) Urine Marijuana (THC) (NEGATIVE) Ethyl Alcohol < 10 (0-10) mg/dL - Progress Progress: improved, re-examined Progress Note: 05/24/23 21:50 This patient's medical issue is 1 of moderate complexity. Level complex in the work-up performed is based on review of the patient's past medical history, review of the patient's medication list, review of patient drug allergy list, history of present illness and physical findings on examination. Work-up in this patient includes placement of an intravenous line, CBC, CMP, alcohol level, urine drug screen, urinalysis, CT scan of the head, troponin level and twelve- lead EKG. 05/24/23 22:11 I reviewed and interpreted the patient's laboratory results. There is no evidence of any acute, emergent findings. CT scan of the head was interpreted by radiologist and I reviewed the impression. There is no evidence of any acute intracranial abnormality. Counseled pt/family regarding: lab results, diagnosis, need for follow-up, rad results Medical Desision Making - Independent Historian Additional History obtained from: Mother - Diagnostic Testing Diagnostic test were ordered, analyzed, and reviewed by me: Yes Radiological Interpretation: Reviewed by me, Teleradiologist Report - Risk of complications Minimal Risk: Minimal risk of morbidity - Departure Departure Disposition: Home Clinical Impression: Lightheadedness, Left arm pain Condition: Stable Critical Care Time: No Referrals: STEPH LEWIS [Primary Care Provider] - Follow up/PCP as directed Additional Instructions: Continue your medication as prescribed. Follow-up with your primary care provider and tie knitter helper tomorrow morning, 05/25/2023, to make arrangements for further evaluation management.
[2023-05-24 20:57] VITALS: RESP 16; TEMP 98.3
[2023-05-24 21:26] LABS: Absolute Neutrophil Ct (ANC) 7.48 x10^3/uL (1.4-6.9); BASOPHIL % 0.5 % (0.0-0.4); Basophil (Absolute #) 0.05 x10^3/uL (0-0.4); Eosinophil % 0.3 % (0.00-5.0); Eosinophil (Absolute #) 0.03 x10^3/uL (0-0.5); Hematocrit 37.2 % (35-47); Hemoglobin 12.1 g/dL (12.0-16.0); IMMATURE GRAN # 0.03 x10^3u/L (0.00-0.03); IMMATURE GRAN % 0.3 % (0.00-0.4); Lymphocyte (Absolute #) 2.68 x10^3/uL (1.0-4.6); Lymphocytes % 24.2 % (24.0-44.0); Mean Cell Volume 94.2 fL (78-100); Mean Corpuscular Hemoglobin 30.6 pg (26-32); Mean Corpuscular Hgb Concent. 32.5 g/dL (32-36); Mean Platelet Volume 9.3 fL (7.5-11.0); Monocyte (Absolute #) 0.82 x10^3/uL (0.0-1.3); Monocytes % 7.4 % (0.0-12.0); Neutrophil % 67.3 % (36.0-66.0); Platelet Count 340 x10^3/uL (150-450); Red Blood Count 3.95 x10^6/uL (4.1-5.4); Red Cell Distribution Width 11.6 % (11.5-14.0); White Blood Count 11.1 x10^3/uL (4.0-10.5)
[2023-05-24 21:29] LABS: Appearance Clear (Clear); Bilirubin Negative (Negative); Blood Negative (Negative); Glucose, Urine Negative (Negative); Ketones Negative (Negative); Leukocyte Esterase Negative (Negative); Nitrite Negative (Negative); Ph 5.5 (4.6-8.0); Protein,Urine Dip Negative (Negative); Specific Gravity 1.015 (1.005-1.030); Urobilinogen 0.2 mg/dL (0.2)
[2023-05-24] MEDS ORDERED: ZOFRAN ODT 4 MG PO ONE (21:31)
[2023-05-24] MEDS ORDERED: ZOFRAN ODT 4 MG ONE (21:33)
[2023-05-24 21:36] LABS: Bacteria None Seen /HPF (None Seen); Epithelial Cells Rare /HPF (None Seen); Hyaline Casts NONE SEEN /LPF (0-2); RBC 0-2 /HPF (0-5); WBC 0-2 /HPF (0-5)
[2023-05-24 21:41] LABS: ALBUMIN 4.3 g/dL (3.5-5.0); ALKALINE PHOSPHATASE 80 U/L (38-126); ANION GAP 12.2 MEQ/L (5-15); BLOOD UREA NITROGEN 18 mg/dL (7-17); CHLORIDE 104 mmol/L (98-107); Calcium 9.2 mg/dL (8.4-10.2); Carbon Dioxide 25 mmol/L (22-30); Creatinine 1 0.79 mg/dL (0.52-1.04); EST GLOMERULAR FILTRATION RATE 94.5 ML/MIN; ETHYL ALCOHOL < 10 mg/dL (0-10); Glucose 134 mg/dL (74-106); MAGNESIUM 1.9 mg/dL (1.6-2.3); Potassium 3.6 mmol/L (3.5-5.1); SGOT/AST 32 U/L (14-36); SGPT/ALT 31 U/L (0-35); SODIUM 138 mmol/L (137-145); Total Protein 7.7 g/dL (6.3-8.2)
[2023-05-24 21:43] LABS: ADD URINE CULTURE? NO (NO)
[2023-05-24 21:50] LABS: Amphetamine,Urine NEGATIVE (NEGATIVE); Barbiturate,Urine NEGATIVE (NEGATIVE); Benzodiazepine,Urine NEGATIVE (NEGATIVE); Cocaine,Urine NEGATIVE (NEGATIVE); Methadone,Urine NEGATIVE (NEGATIVE); Opiate,Urine NEGATIVE (NEGATIVE); PCP,Urine NEGATIVE (NEGATIVE); THC,Urine NEGATIVE (NEGATIVE)
[2023-05-24 22:19] VITALS: BP 131/79
[2023-05-24 22:21] VITALS: PULSE 94; O2SAT 98
--- NOTE | 2023-05-25 08:37 | XRAY ---
Indication: Dizziness. Multiple contiguous axial images obtained through the head without contrast. Comparison: March 09, 2020 Normal appearing brain parenchyma, ventricles, and bony calvarium. Visualized paranasal sinuses and mastoid air cells are clear. Impression: Continued normal CT head without contrast exam.
== END 2023-05-24 22:27 | disposition home or self-care (01) ==
LOC: ED 20:33
DX: R42 Dizziness and giddiness (principal); M79.602 Pain in left arm; R11.0 Nausea; R06.02 Shortness of breath; E78.5 Hyperlipidemia, unspecified; E11.9 Type 2 diabetes mellitus without complications; I10 Essential (primary) hypertension; Z79.85 Long-term (current) use of injectable non-insulin antidiabetic drugs; Z79.899 Other long term (current) drug therapy
CPT/HCPCS: 36415; 70450; 80053; 80307; 81001; 82077; 83735; 84484; 85025; 93005; 99283; Q0162